=== PATIENT | female | born 1950 | race Caucasian/White ===

== ENCOUNTER 2017-04-27 09:39 | Outpatient (CLI) | payer MEDICARE, BC ==
[2017-04-27 10:01] LABS: BASOPHILS # (AUTO) 0.1 10^3/uL (0.0-0.1); BASOPHILS % (AUTO) 1.4 %; EOSINOPHILS # (AUTO) 0.3 10^3/uL (0.0-0.7); EOSINOPHILS % (AUTO) 4.5 %; HCT - HEMATOCRIT 36.1 % (37.0-47.0); HGB - HEMOGLOBIN 12.1 g/dL (12.0-16.0); LYMPHOCYTES # (AUTO) 2.1 10^3/uL (1.5-3.5); LYMPHOCYTES % (AUTO) 30.2 %; MEAN CORPUSCULAR HEMOGLOBIN 28.8 pg (27.0-31.0); MEAN CORPUSCULAR HGB CONC 33.4 g/dL (32.0-36.0); MEAN CORPUSCULAR VOLUME 86.2 fL (81.0-99.0); MEAN PLATELET VOLUME 9.2 fL (7.9-10.8); MONOCYTES # (AUTO) 0.7 10^3/uL (0.0-1.0); MONOCYTES % (AUTO) 9.7 %; NEUTROPHILS # (AUTO) 3.8 10^3/uL (1.5-6.6); NEUTROPHILS % (AUTO) 54.2 %; RED BLOOD COUNT 4.19 10^6/uL (4.20-5.40); RED CELL DISTRIBUTION WIDTH 17.4 % (12.0-15.0)
[2017-04-27 10:39] LABS: ALBUMIN/GLOBULIN RATIO 1.4 (1.0-2.2); BILIRUBIN,TOTAL 0.7 mg/dL (0.2-1.0); BUN - BLOOD UREA NITROGEN 22 mg/dL (6-20); CALCIUM 9.7 mg/dL (8.5-10.3); CARBON DIOXIDE - CO2 29 mmol/L (21-32); CHLORIDE 102 mmol/L (101-111); CHOL/HDL RATIO 4.7 (<4.4); CHOLESTEROL 244 mg/dL; CREATININE 0.7 mg/dL (0.4-1.0); GFR - MDRD 83 (>89); GLUCOSE 99 mg/dL (70-100); HDL CHOLESTEROL 52 mg/dL; LDL/HDL RATIO 3.2 (<4.4); POTASSIUM 4.3 mmol/L (3.5-5.0); SODIUM 138 mmol/L (135-145); TOTAL PROTEIN 7.4 g/dL (6.7-8.2); TRIGLYCERIDES 141 mg/dL; VLDL CHOLESTEROL 28 mg/dL
[2017-04-27 14:59] LABS: IRON 50 ug/dL (28-170); TOTAL IRON BINDING CAPACITY 473 ug/dL (250-450); TRANSFERRIN 338 mg/dL (192-382)
== END 2017-04-27 09:40 | disposition home or self-care (01) ==
LOC: LAB 09:39
PROVIDERS: ATTEND Family Medicine
DX: E78.5 Hyperlipidemia, unspecified (principal); D64.9 Anemia, unspecified
CPT/HCPCS: 36415; 80053; 80061; 82306; 82728; 83540; 84443; 84466; 85025

== ENCOUNTER 2018-05-04 08:15 | Outpatient (CLI) | payer MEDICARE, BC ==
[2018-05-04 08:44] LABS: BASOPHILS # (AUTO) 0.1 10^3/uL (0.0-0.1); BASOPHILS % (AUTO) 1.1 %; EOSINOPHILS # (AUTO) 0.4 10^3/uL (0.0-0.7); EOSINOPHILS % (AUTO) 5.7 %; HGB - HEMOGLOBIN 12.4 g/dL (12.0-16.0); LYMPHOCYTES % (AUTO) 27.5 %; MEAN CORPUSCULAR HEMOGLOBIN 29.8 pg (27.0-31.0); MEAN CORPUSCULAR VOLUME 90.4 fL (81.0-99.0); MONOCYTES # (AUTO) 0.7 10^3/uL (0.0-1.0); MONOCYTES % (AUTO) 9.3 %; NEUTROPHILS # (AUTO) 4.2 10^3/uL (1.5-6.6); NEUTROPHILS % (AUTO) 56.4 %; PLT - PLATELET COUNT 300 10^3/uL (130-450); RED BLOOD COUNT 4.14 10^6/uL (4.20-5.40); RED CELL DISTRIBUTION WIDTH 17.7 % (12.0-15.0); WHITE BLOOD COUNT 7.4 x10^3/uL (4.8-10.8)
[2018-05-04 09:05] LABS: % IRON SATURATION 9 % (20-50); ALBUMIN 4.3 g/dL (3.2-5.5); ALBUMIN/GLOBULIN RATIO 1.4 (1.0-2.2); ALKALINE PHOSPHATASE 84 IU/L (42-121); ALT ALANINE AMINOTRANSFERASE 21 IU/L (10-60); AST ASPARTATE AMINOTRANSFERASE 25 IU/L (10-42); BILIRUBIN,TOTAL 0.9 mg/dL (0.2-1.0); BUN - BLOOD UREA NITROGEN 18 mg/dL (6-20); CALCIUM 9.5 mg/dL (8.5-10.3); CARBON DIOXIDE - CO2 30 mmol/L (21-32); CHLORIDE 103 mmol/L (101-111); CHOL/HDL RATIO 4.6 (<4.4); CHOLESTEROL 252 mg/dL; CREATININE 0.6 mg/dL (0.4-1.0); GFR - MDRD 99 (>89); GLUCOSE 96 mg/dL (70-100); HDL CHOLESTEROL 55 mg/dL; IRON 41 ug/dL (28-170); LDL CHOLESTEROL,CALCULATED 169 mg/dL; LDL/HDL RATIO 3.1 (<4.4); SODIUM 140 mmol/L (135-145); TOTAL IRON BINDING CAPACITY 465 ug/dL (250-450); TOTAL PROTEIN 7.4 g/dL (6.7-8.2); TRANSFERRIN 332 mg/dL (192-382); VLDL CHOLESTEROL 28 mg/dL
[2018-05-04 09:15] LABS: THYROID STIMULATING HORMONE 1.47 uIU/mL (0.34-5.60)
[2018-05-04 09:20] LABS: FERRITIN 5.5 ng/mL (11.0-306.8)
== END 2018-05-04 08:16 | disposition home or self-care (01) ==
LOC: LAB 08:15
PROVIDERS: ATTEND Family Medicine
DX: J44.9 Chronic obstructive pulmonary disease, unspecified (principal); E04.1 Nontoxic single thyroid nodule; E78.5 Hyperlipidemia, unspecified; D64.9 Anemia, unspecified; Z79.899 Other long term (current) drug therapy
CPT/HCPCS: 36415; 80053; 80061; 82306; 82728; 83540; 83721; 84443; 84466; 85025

== ENCOUNTER 2019-01-10 10:23 | Outpatient (CLI) | payer MEDICARE, BC ==
[2019-01-10 10:41] LABS: BASOPHILS # (AUTO) 0.1 10^3/uL (0.0-0.1); BASOPHILS % (AUTO) 1.2 %; EOSINOPHILS # (AUTO) 0.2 10^3/uL (0.0-0.7); EOSINOPHILS % (AUTO) 3.3 %; HGB - HEMOGLOBIN 12.6 g/dL (12.0-16.0); LYMPHOCYTES # (AUTO) 2.1 10^3/uL (1.5-3.5); LYMPHOCYTES % (AUTO) 29.8 %; MEAN CORPUSCULAR VOLUME 87.9 fL (81.0-99.0); MEAN PLATELET VOLUME 8.5 fL (7.9-10.8); MONOCYTES # (AUTO) 0.6 10^3/uL (0.0-1.0); MONOCYTES % (AUTO) 8.4 %; NEUTROPHILS % (AUTO) 57.3 %; PLT - PLATELET COUNT 363 10^3/uL (130-450); RED BLOOD COUNT 4.35 10^6/uL (4.20-5.40); RED CELL DISTRIBUTION WIDTH 17.7 % (12.0-15.0)
[2019-01-10 11:40] LABS: % IRON SATURATION 27 % (20-50); ALBUMIN 4.3 g/dL (3.2-5.5); ALBUMIN/GLOBULIN RATIO 1.3 (1.0-2.2); ALKALINE PHOSPHATASE 76 IU/L (42-121); ALT ALANINE AMINOTRANSFERASE 24 IU/L (10-60); AST ASPARTATE AMINOTRANSFERASE 22 IU/L (10-42); BILIRUBIN,TOTAL 0.9 mg/dL (0.2-1.0); BUN - BLOOD UREA NITROGEN 20 mg/dL (6-20); CALCIUM 9.7 mg/dL (8.5-10.3); CARBON DIOXIDE - CO2 30 mmol/L (21-32); CHLORIDE 98 mmol/L (101-111); CHOL/HDL RATIO 4.6 (<4.4); CHOLESTEROL 258 mg/dL; CREATININE 0.5 mg/dL (0.4-1.0); GFR - MDRD 122 (>89); GLUCOSE 94 mg/dL (70-100); HDL CHOLESTEROL 56 mg/dL; IRON 143 ug/dL (28-170); LDL CHOLESTEROL,CALCULATED 161 mg/dL; LDL/HDL RATIO 2.9 (<4.4); SODIUM 138 mmol/L (135-145); TOTAL IRON BINDING CAPACITY 531 ug/dL (250-450); TOTAL PROTEIN 7.5 g/dL (6.7-8.2); TRANSFERRIN 379 mg/dL (192-382); VLDL CHOLESTEROL 41 mg/dL
[2019-01-10 12:04] LABS: FERRITIN 6.7 ng/mL (11.0-306.8)
== END 2019-01-10 10:24 | disposition home or self-care (01) ==
LOC: LAB 10:23
PROVIDERS: ATTEND Family Medicine
DX: E78.5 Hyperlipidemia, unspecified (principal); Z79.899 Other long term (current) drug therapy; D64.9 Anemia, unspecified; J44.9 Chronic obstructive pulmonary disease, unspecified; E55.9 Vitamin D deficiency, unspecified; E04.1 Nontoxic single thyroid nodule
CPT/HCPCS: 36415; 80053; 80061; 82306; 82728; 83540; 83721; 84443; 84466; 85025

== ENCOUNTER 2019-02-12 08:50 | Outpatient (CLI) | payer MEDICARE, BC ==
--- NOTE | 2019-02-12 14:54 | XRAY Report ---
Reason: COPD Procedure Date: 02/12/2019 Accession Number: [id number] / [id number] Procedure: WCP - Chest 2 View X-Ray CPT Code: 39605 FULL RESULT: EXAM: CHEST RADIOGRAPHY EXAM DATE: 02/12/2019 09:12 AM. CLINICAL HISTORY: Shortness of breath, COPD. COMPARISON: None. TECHNIQUE: 2 views. FINDINGS: Lungs/Pleura: No focal opacities evident. No pleural effusion. No pneumothorax. Normal volumes. Mediastinum: Heart and mediastinal contours are unremarkable. Other: A biphasic mild thoracolumbar scoliosis present. An old healed posterior lateral left seventh rib fracture present. IMPRESSION: No acute cardiopulmonary disease evident. RADIA
== END 2019-02-12 08:51 | disposition home or self-care (01) ==
LOC: DI.WCP 08:50
PROVIDERS: ATTEND Family Medicine
DX: J44.9 Chronic obstructive pulmonary disease, unspecified (principal)
CPT/HCPCS: 71046

== ENCOUNTER 2019-08-25 03:15 | Outpatient (CLI) | payer MEDICARE, BC | END 2019-08-25 03:16 | disposition critical access hospital (66) | LOC: EMS 03:15 | PROVIDERS: ATTEND Surgery | DX: R06.02 Shortness of breath (principal) | CPT/HCPCS: A0425; A0429 ==

== ENCOUNTER 2019-08-25 03:22 | Emergency (ER) | payer MEDICARE, BC ==
--- NOTE | 2019-08-25 04:55 | ED Physician Documentation ---
PD HPI DYSPNEA - Stated complaint Stated Complaint: SOA - Chief complaint Chief Complaint: Resp - History obtained from History obtained from: Patient - History of Present Illness Timing - onset: Enter time (01:00) Timing - onset during: Sleep Timing - details: Abrupt onset Pain level max: 0 Pain level now: 0 Improved by: Rest Worsened by: Exertion Associated symptoms: Diaphoresis. No: Fever, Chest pain / discomfort, Palpitations, Bilateral edema, Unilateral edema Similar symptoms before: Has not had sx before Recently seen: Not recently seen - Additional information Additional information: woke from sleep 1 AM and felt dyspneic, nauseas, clammy, sweaty. BIBA, symptoms improved en route without specific intervention. she recently had 2 week holter monitor, awaiting results. Review of Systems Constitutional: reports: Sweats. denies: Fever, Chills, Fatigue Cardiac: denies: Chest pain / pressure, Palpitations, Pedal edema Respiratory: reports: Dyspnea. denies: Cough GI: reports: Nausea. denies: Abdominal Pain, Vomiting : denies: Dysuria, Frequency Musculoskeletal: reports: Reviewed and negative PD PAST MEDICAL HISTORY - Past Medical History Past Medical History: Yes Cardiovascular: Arrhythmia Respiratory: COPD Neuro: None Endocrine/Autoimmune: None GI: None PATROL GUARD: None : None HEENT: None Psych: None Musculoskeletal: Osteoarthritis, Chronic back pain, Other Derm: None - Past Surgical History General: Cholecystectomy HEENT: Tonsil/Adenoidectomy - Present Medications Home Medications: Ambulatory Orders Medication Instructions Recorded Confirmed Diazepam 5 mg PO DAILY PRN 10/21/13 01/05/15 Ipratropium/Albuterol Inhaler 2 puffs INH 3-4XD PRN 10/21/13 01/05/15 [Combivent Inhaler] Fluticasone/Salmeterol [Advair 1 puffs IH DAILY 03/17/14 01/05/15 250-50 Diskus] diltiaZEM CD [Cardizem Cd] 120 mg PO DAILY #20 capsule 08/25/19 - Allergies Allergies/Adverse Reactions: Allergies Allergy/AdvReac Type Severity Reaction Status Date / Time iodine Allergy Unknown unk Verified 12/17/13 17:31 Sulfa (Sulfonamide Allergy Unknown unk Verified 12/17/13 17:31 Antibiotics) codeine Allergy Unknown Verified 08/26/19 08:49 doxycycline Allergy Unknown Verified 08/26/19 08:49 ibuprofen Allergy Unknown Verified 08/26/19 08:49 Penicillins Allergy unk Verified 12/17/13 17:31 mycins Allergy Unknown Uncoded 08/26/19 08:49 - Social History Does the pt smoke?: Yes Smoking Status: Current every day smoker Does the pt drink ETOH?: No Does the pt have substance abuse?: No - Immunizations Immunizations are current?: Yes Immunizations: TDAP current <10years - POLST Patient has POLST: No PD ED PE NORMAL - Vitals Vital signs reviewed: Yes - General General: Alert and 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, No acute distress, Well developed/nourished - HEENT HEENT: Moist mucous membranes - Neck Neck: Supple, no meningeal sign - Respiratory Respiratory: No respiratory distress, Clear bilaterally - Abdomen Abdomen: Soft, Non tender - Derm Derm: Normal color, Warm and dry - Extremities Extremities: No edema - Neuro Neuro: Alert and 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 PD ED PE EXPANDED - Cardiac Cardiac: Tachy, Irregularly irregular Results - Vitals Vitals: Oxygen O2 Source Room air - EKG (time done) No standard instances Rate: Rate (enter#) (113) Rhythm: Atrial fibrillation [place]: Normal Intervals: RBBB QRS: Normal Ischemia: Normal ST segments - Labs Labs: Laboratory Tests 08/25/19 08/25/19 08/25/19 04:50 04:50 04:50 WBC 9.2 RBC 4.63 Hgb 12.4 Hct 39.9 MCV 86.2 MCH 26.8 L MCHC 31.1 L RDW 17.8 H Plt Count 367 MPV 11.8 H Neut # (Auto) 6.1 Lymph # (Auto) 1.8 [place] # (Auto) 0.9 Eos # (Auto) 0.4 Baso # (Auto) 0.1 Absolute Nucleated RBC 0.00 Nucleated RBC % 0.0 Sodium 142 Potassium 4.1 Chloride 103 Carbon Dioxide 29 Anion Gap 10.0 BUN 23 H Creatinine 0.6 Estimated GFR (MDRD) 99 Glucose 119 H Calcium 9.7 Magnesium Total Bilirubin 0.4 AST 21 ALT 19 Alkaline Phosphatase 77 Troponin I High Sens 12.7 B-Natriuretic Peptide Total Protein 7.5 Albumin 4.1 Globulin 3.4 Albumin/Globulin Ratio 1.2 Lipase 36 08/25/19 08/25/19 04:50 04:50 WBC RBC Hgb Hct MCV MCH MCHC RDW Plt Count MPV Neut # (Auto) Lymph # (Auto) [place] # (Auto) Eos # (Auto) Baso # (Auto) Absolute Nucleated RBC Nucleated RBC % Sodium Potassium Chloride Carbon Dioxide Anion Gap BUN Creatinine Estimated GFR (MDRD) Glucose Calcium Magnesium 2.2 Total Bilirubin AST ALT Alkaline Phosphatase Troponin I High Sens B-Natriuretic Peptide 60 Total Protein Albumin Globulin Albumin/Globulin Ratio Lipase - Rads (name of study) chest xray Radiology: Prelim report reviewed, See rad report PD MEDICAL DECISION MAKING - ED course Complexity details: reviewed results, re-evaluated patient, considered differential, d/w patient ED course: DENNIS converted to NSR after IV cardizem, and this effected symptom resolution (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 Departure - Departure Disposition: 01 Home, Self Care Clinical Impression: Atrial fibrillation Qualifiers: Atrial fibrillation type: paroxysmal Qualified Code(s): I48.0 - Paroxysmal atrial fibrillation Condition: Good Instructions: ED Afib Follow-Up: Ras Urbano MD [Primary Care Provider] - Prescriptions: diltiaZEM CD [Cardizem Cd] 120 mg PO DAILY #20 capsule Discharge Date/Time: 08/25/19 07:51
--- NOTE | 2019-08-25 05:22 | XRAY Report ---
Reason: SOA Procedure Date: 08/25/2019 Accession Number: [id number] / [id number] Procedure: XR - Chest 1 View X-Ray CPT Code: 87894 Final Report FULL RESULT: EXAM: CHEST RADIOGRAPHY EXAM DATE: 08/25/2019 04:56 AM. CLINICAL HISTORY: SOA. COMPARISON: CHEST 2 VIEW 02/12/2019 8:46 AM. TECHNIQUE: 1 view. FINDINGS: Lungs/Pleura: Possible mild left base atelectasis. No focal opacities evident. No pulmonary edema. No pleural effusion. No pneumothorax. Mediastinum: Within exam limitations, the cardiomediastinal contour is normal. Other: Osseous degenerative changes and mild scoliosis of the thoracic spine. Stable healed left posterior seventh rib fracture. IMPRESSION: Possible mild atelectasis at left lung base. Otherwise no evidence of acute cardiopulmonary process. RADIA
[2019-08-25] MEDS ORDERED: diltiaZEM INJ 5 MG/ML VIAL IVP STA (05:31)
[2019-08-25 05:47] LABS: BASOPHILS # (AUTO) 0.1 10^3/uL (0.0-0.1); BASOPHILS % (AUTO) 1.1 %; EOSINOPHILS # (AUTO) 0.4 10^3/uL (0.0-0.7); EOSINOPHILS % (AUTO) 3.9 %; HGB - HEMOGLOBIN 12.4 g/dL (12.0-16.0); LYMPHOCYTES # (AUTO) 1.8 10^3/uL (1.5-3.5); MEAN CORPUSCULAR HEMOGLOBIN 26.8 pg (27.0-31.0); MEAN CORPUSCULAR HGB CONC 31.1 g/dL (32.0-36.0); MEAN CORPUSCULAR VOLUME 86.2 fL (81.0-99.0); MEAN PLATELET VOLUME 11.8 fL (7.9-10.8); MONOCYTES # (AUTO) 0.9 10^3/uL (0.0-1.0); MONOCYTES % (AUTO) 9.9 %; NEUTROPHILS # (AUTO) 6.1 10^3/uL (1.5-6.6); NEUTROPHILS % (AUTO) 65.6 %; PLT - PLATELET COUNT 367 10^3/uL (130-450); RED BLOOD COUNT 4.63 10^6/uL (4.20-5.40); RED CELL DISTRIBUTION WIDTH 17.8 % (12.0-15.0); WHITE BLOOD COUNT 9.2 x10^3/uL (4.8-10.8)
[2019-08-25 05:56] LABS: ALBUMIN 4.1 g/dL (3.2-5.5); ALBUMIN/GLOBULIN RATIO 1.2 (1.0-2.2); BILIRUBIN,TOTAL 0.4 mg/dL (0.2-1.0); CALCIUM 9.7 mg/dL (8.5-10.3); CREATININE 0.6 mg/dL (0.4-1.0); TOTAL PROTEIN 7.5 g/dL (6.7-8.2)
[2019-08-25] MEDS ORDERED: diltiaZEM CD 120 MG CAPSULE PO STA (07:34)
[2019-08-25 07:42] VITALS: BP 153/76
== END 2019-08-25 07:51 | disposition home or self-care (01) ==
LOC: EDUNIT# → ED 03:22
DX: I48.0 Paroxysmal atrial fibrillation (principal); F17.200 Nicotine dependence, unspecified, uncomplicated
CPT/HCPCS: 36415; 71045; 80053; 83690; 83735; 83880; 84484; 85025; 93005; 96374; 99284; A9270

== ENCOUNTER 2019-11-24 11:52 | Emergency (ER) | payer MEDICARE, BC ==
[2019-11-24 12:16] LABS: BASOPHILS # (AUTO) 0.1 10^3/uL (0.0-0.1); BASOPHILS % (AUTO) 0.9 %; EOSINOPHILS # (AUTO) 0.2 10^3/uL (0.0-0.7); EOSINOPHILS % (AUTO) 1.9 %; HGB - HEMOGLOBIN 8.4 g/dL (12.0-16.0); LYMPHOCYTES # (AUTO) 1.4 10^3/uL (1.5-3.5); LYMPHOCYTES % (AUTO) 15.2 %; MEAN CORPUSCULAR HEMOGLOBIN 23.7 pg (27.0-31.0); MEAN CORPUSCULAR HGB CONC 29.7 g/dL (32.0-36.0); MEAN CORPUSCULAR VOLUME 79.7 fL (81.0-99.0); MEAN PLATELET VOLUME 10.5 fL (7.9-10.8); MONOCYTES # (AUTO) 0.9 10^3/uL (0.0-1.0); MONOCYTES % (AUTO) 9.9 %; NEUTROPHILS # (AUTO) 6.4 10^3/uL (1.5-6.6); NEUTROPHILS % (AUTO) 71.8 %; PLT - PLATELET COUNT 445 10^3/uL (130-450); RED BLOOD COUNT 3.55 10^6/uL (4.20-5.40); WHITE BLOOD COUNT 8.9 x10^3/uL (4.8-10.8)
[2019-11-24 12:27] LABS: INR 1.2 (0.8-1.2); PT - PROTHROMBIN TIME 13.8 secs (9.9-12.6)
[2019-11-24 12:34] LABS: ALBUMIN 4.1 g/dL (3.2-5.5); ALBUMIN/GLOBULIN RATIO 1.2 (1.0-2.2); BILIRUBIN,TOTAL 0.6 mg/dL (0.2-1.0); CALCIUM 9.4 mg/dL (8.5-10.3); CREATININE 0.6 mg/dL (0.4-1.0); MAGNESIUM 1.9 mg/dL (1.7-2.8); TOTAL PROTEIN 7.4 g/dL (6.7-8.2)
[2019-11-24] MEDS ORDERED: IPRATROPIUM/ALBUTEROL 3 ML NEB INH STA (12:36)
[2019-11-24] MEDS ORDERED: methylPREDNISolone SUCCINATE 125 MG/2 ML VIAL IVP STA (12:36)
[2019-11-24] MEDS ORDERED: diltiaZEM INJ 5 MG/ML VIAL IVP STA (12:36)
--- NOTE | 2019-11-24 12:46 | ED Physician Documentation ---
PD HPI DYSPNEA - Stated complaint Stated Complaint: DIZZY - Chief complaint Chief Complaint: Resp - History obtained from History obtained from: Patient - History of Present Illness Timing - onset: Other (69-year-old woman with history of atrial fibrillation, COPD and ongoing tobacco use presents with shortness of breath that started this morning. She has minimal cough, nonproductive. She has sternal pain but says she has had that for months and in the interim has had a recent stress test that was negative. 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 She is on no cardiac meds now except for aspirin. She denies pedal edema. No new chest pain. She has a history of anemia but denies dark or tarry stools. She has been constipated recently.) Review of Systems Ten Systems: 10 systems reviewed and negative Constitutional: reports: Fatigue. denies: Fever, Chills Nose: denies: Rhinorrhea / runny nose, Congestion Cardiac: reports: Chest pain / pressure, Palpitations. denies: Pedal edema, Calf pain Respiratory: reports: Dyspnea, Cough, Wheezing. denies: Hemoptysis GI: reports: Constipation. 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 : None HEENT: None Psych: None Musculoskeletal: Osteoarthritis, Chronic back pain, Other Derm: None - Past Surgical History General: Cholecystectomy HEENT: Tonsil/Adenoidectomy - Present Medications Home Medications: Ambulatory Orders Medication Instructions Recorded Confirmed Diazepam 5 mg PO DAILY PRN 10/21/13 01/05/15 Ipratropium/Albuterol Inhaler 2 puffs INH 3-4XD PRN 10/21/13 01/05/15 [Combivent Inhaler] Fluticasone/Salmeterol [Advair 1 puffs IH DAILY 03/17/14 01/05/15 250-50 Diskus] diltiaZEM CD [Cardizem Cd] 120 mg PO DAILY #20 capsule 08/25/19 Azithromycin [Zithromax] 1 tab PO DAILY #6 tablet 11/24/19 Metoclopramide [Reglan] 10 mg PO Q6H PRN #20 tablet 11/24/19 predniSONE [Deltasone] 20 mg PO [id number] #21 tab 11/24/19 - Allergies Allergies/Adverse Reactions: Allergies Allergy/AdvReac Type Severity Reaction Status Date / Time iodine Allergy Unknown unk Verified 12/17/13 17:31 Sulfa (Sulfonamide Allergy Unknown unk Verified 12/17/13 17:31 Antibiotics) codeine Allergy Unknown Verified 08/26/19 08:49 doxycycline Allergy Unknown Verified 08/26/19 08:49 ibuprofen Allergy Unknown Verified 08/26/19 08:49 Penicillins Allergy unk Verified 12/17/13 17:31 mycins Allergy Unknown Uncoded 08/26/19 08:49 - Social History Does the pt smoke?: Yes Smoking Status: Current every day smoker Does the pt drink ETOH?: No Does the pt have substance abuse?: No - Family History Family history: reports: Non contributory - Immunizations Immunizations are current?: Yes Immunizations: TDAP current <10years - POLST Patient has POLST: No PD ED PE NORMAL - Vitals Vital signs reviewed: Yes - General General: Other (Slightly breathless but speaking in full sentences.) - HEENT HEENT: PERRL, EOMI - Neck Neck: Supple, no meningeal sign, No bony TTP - Cardiac Cardiac: Other (Rapid and irregular without murmur) - Respiratory Respiratory: Other (Modest tachypnea, slightly diminished and rhonchorous and wheezy throughout without other focal findings.) - Abdomen Abdomen: Normal bowel sounds, Soft, Non tender - Back Back: No CVA TTP, No spinal TTP - Derm Derm: Normal color, Warm and dry - Extremities Extremities: Other (Trace pitting pedal edema, nontender, symmetric) - Neuro Neuro: Alert and 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, Normal speech - Psych Psych: Normal mood, Normal affect Results - Vitals Vitals: Vital Signs - 24 hr 11/24/19 11/24/19 11/24/19 11:56 12:03 12:30 Temperature 37.2 C Heart Rate 128 H 144 H 116 H Respiratory 28 H 25 H Rate Blood Pressure 128/83 H 121/68 O2 Saturation 99 11/24/19 11/24/19 11/24/19 12:58 13:01 13:06 Temperature Heart Rate 116 H 106 H 99 Respiratory 18 24 22 Rate Blood Pressure 86/56 L 140/98 H O2 Saturation 99 95 Oxygen O2 Source Room air - EKG (time done) 1201 Rate: Rate (enter#) (127) Rhythm: Atrial flutter, Atrial fibrillation [place]: Normal QRS: Normal Ischemia: Non specific changes ( minimal lateral std) Computer interpretation: Disagree with computer - Labs Labs: Laboratory Tests 11/24/19 11/24/19 11/24/19 12:10 12:10 12:10 WBC 8.9 RBC 3.55 L Hgb 8.4 L Hct 28.3 L MCV 79.7 L MCH 23.7 L MCHC 29.7 L RDW 17.0 H Plt Count 445 MPV 10.5 Neut # (Auto) 6.4 Lymph # (Auto) 1.4 L [place] # (Auto) 0.9 Eos # (Auto) 0.2 Baso # (Auto) 0.1 Absolute Nucleated RBC 0.00 Nucleated RBC % 0.0 PT 13.8 H INR 1.2 Sodium 136 Potassium 4.0 Chloride 98 L Carbon Dioxide 26 Anion Gap 12.0 BUN 16 Creatinine 0.6 Estimated GFR (MDRD) 99 Glucose 138 H Calcium 9.4 Magnesium 1.9 Total Bilirubin 0.6 AST 30 ALT 25 Alkaline Phosphatase 87 Troponin I High Sens B-Natriuretic Peptide Total Protein 7.4 Albumin 4.1 Globulin 3.3 Albumin/Globulin Ratio 1.2 Lipase 34 TSH Blood Type Recheck 11/24/19 11/24/19 11/24/19 12:10 12:10 12:40 WBC RBC Hgb Hct MCV MCH MCHC RDW Plt Count MPV Neut # (Auto) Lymph # (Auto) [place] # (Auto) Eos # (Auto) Baso # (Auto) Absolute Nucleated RBC Nucleated RBC % PT INR Sodium Potassium Chloride Carbon Dioxide Anion Gap BUN Creatinine Estimated GFR (MDRD) Glucose Calcium Magnesium Total Bilirubin AST ALT Alkaline Phosphatase Troponin I High Sens 13.5 B-Natriuretic Peptide Total Protein Albumin Globulin Albumin/Globulin Ratio Lipase TSH 1.09 Blood Type Recheck A POSITIVE 11/24/19 12:40 WBC RBC Hgb Hct MCV MCH MCHC RDW Plt Count MPV Neut # (Auto) Lymph # (Auto) [place] # (Auto) Eos # (Auto) Baso # (Auto) Absolute Nucleated RBC Nucleated RBC % PT INR Sodium Potassium Chloride Carbon Dioxide Anion Gap BUN Creatinine Estimated GFR (MDRD) Glucose Calcium Magnesium Total Bilirubin AST ALT Alkaline Phosphatase Troponin I High Sens B-Natriuretic Peptide 83 Total Protein Albumin Globulin Albumin/Globulin Ratio Lipase TSH Blood Type Recheck PD MEDICAL DECISION MAKING - ED course ED course: This is a 69-year-old woman with history of atrial fibrillation and COPD who presents with shortness of breath, history and physical most consistent with kind of a combination of COPD exacerbation and atrial fibrillation without obvious evidence of fluid overload/heart failure. She is also found to be anemic, last labs were done in August and her hemoglobin then was 12, today it is 8.4 she denies any dark or tarry stools or blood in the stool. It also sounds like she had a complete work-up for anemia in the past which was negative per her. She was administered DuoNeb, Solu-Medrol, and diltiazem IV. After the administration of a small dose of diltiazem her heart rate was controlled and she felt much better. Also feeling better after the DuoNeb and Solu-Medrol. We will put her on some antibiotics and prednisone for COPD flare and she will restart her diltiazem, she does not need a prescription for it as she has it at home. She is also having a lot of stomach upset and difficulty eating with early satiety, we will start her on some Reglan and a GI referral was recommended. Departure - Departure Disposition: 01 Home, Self Care Clinical Impression: Moderate COPD (chronic obstructive pulmonary disease) Atrial fibrillation Qualifiers: Atrial fibrillation type: longstanding persistent Qualified Code(s): I48.11 - Longstanding persistent atrial fibrillation Condition: Good Record reviewed to determine appropriate education?: Yes Instructions: Atrial Fibrillation Dc, ED COPD Flare Prescriptions: Azithromycin [Zithromax] 1 tab PO DAILY #6 tablet Metoclopramide [Reglan] 10 mg PO Q6H PRN #20 tablet PRN Reason: nausea or headache predniSONE [Deltasone] 20 mg PO [id number] #21 tab Comments: It seems that your shortness of breath and symptoms today are probably a combination of rapid atrial fibrillation and COPD. For the COPD we are giving you some prednisone and an antibiotic. For the atrial fibrillation I recommend going back on the diltiazem which you already have the prescription for. You are also anemic. It is unclear how long that is been going on. I recommend talking with Dr. Urbano and having repeat labs done later this week to recheck your hemoglobin which today was 8.4. Also given the stomach issues you are having with eating I would recommend talking with Dr. Urbano about a referral to a hardware supplies sales representative. I am prescribing some Reglan/metoclopramide which barbara milligan help with that and with the nausea.
--- NOTE | 2019-11-24 12:52 | XRAY Report ---
Reason: dyspnea Procedure Date: 11/24/2019 Accession Number: [id number] / [id number] Procedure: XR - Chest 1 View X-Ray CPT Code: 16659 Final Report FULL RESULT: EXAM: CHEST RADIOGRAPHY EXAM DATE: 11/24/2019 12:19 PM. CLINICAL HISTORY: Dyspnea. COMPARISON: 08/25/2019. TECHNIQUE: 1 view. FINDINGS: Lungs/Pleura: No focal opacities evident. No pleural effusion. No pneumothorax. Mediastinum: The heart size is at the upper limit of normal. Arterial calcifications indicate atherosclerosis. Other: Old healed left-sided rib fractures are present. There is a mild leftward thoracic scoliosis. DISH is in the thoracic spine. IMPRESSION: No acute findings. RADIA
[2019-11-24 13:56] VITALS: BP 95/62
== END 2019-11-24 14:22 | disposition home or self-care (01) ==
LOC: EDUNIT# → ED 11:52
DX: J44.9 Chronic obstructive pulmonary disease, unspecified (principal); I48.11 Longstanding persistent atrial fibrillation; I48.92 Unspecified atrial flutter; D64.9 Anemia, unspecified; F17.200 Nicotine dependence, unspecified, uncomplicated; Z79.82 Long term (current) use of aspirin
CPT/HCPCS: 36415; 71045; 80053; 83690; 83735; 83880; 84443; 84484; 85025; 85610; 86850; 86900; 86901; 93005; 94640; 94664; 96374; 96375; 99284

== ENCOUNTER 2019-11-24 13:14 | Outpatient (CLI) | payer MEDICARE, BC | END 2019-11-24 13:15 | disposition critical access hospital (66) | LOC: EMS 13:14 | PROVIDERS: ATTEND Surgery | DX: R06.02 Shortness of breath (principal); R42 Dizziness and giddiness | CPT/HCPCS: A0425; A0429 ==

== ENCOUNTER 2019-11-26 07:01 | Outpatient (CLI) | payer MEDICARE, BC | END 2019-11-26 07:02 | disposition critical access hospital (66) | LOC: EMS 07:01 | PROVIDERS: ATTEND Surgery | DX: R06.02 Shortness of breath (principal); R53.1 Weakness; R42 Dizziness and giddiness | CPT/HCPCS: A0425; A0429 ==

== ENCOUNTER 2019-11-26 07:48 | Emergency (ER) | payer MEDICARE, BC ==
--- NOTE | 2019-11-26 08:13 | ED Physician Documentation ---
PD HPI DYSPNEA - Stated complaint Stated Complaint: SOA - History obtained from History obtained from: Patient - History of Present Illness Timing - onset: How many years ago Timing - onset during: Rest, Light activity, Exertion Timing - details: Gradual onset Worsened by: Exertion Associated symptoms: Cough, Palpitations, Bilateral edema. No: Fever, Chest pain / discomfort Recently seen: Emergency Dept - Additional information Additional information: This is a 69-year-old woman who was seen in the emergency department 3 days ago with shortness of breath. She is back today because she would like to get to the bottom of what is going on. She is been experiencing symptoms for off and on for over a year but they seem to be getting progressively worse and this morning she woke up around 3 AM and was just feeling light headed having a little bit of "punching" sensation in the gut she did her albuterol around 3 AM and did not really seem to help much she was really restless she could not lay down she could not sit up and then she had another episode where she felt like she was getting punched in the gut that lasted at least 20 to 30 seconds while she was on the phone with her daughter daughter told her to hang up and call 911. Patient gets lightheaded she has a dry mouth. She has been evaluated by the global supply chain vice president had is going in and out of A. fib and has "runs of V. tach". She had a negative stress test and was told her heart pumping function was good. She was placed on Xarelto but she had to discontinue that because of GI bleeding. Now she is only taking aspirin as a blood thinner. This morning she had 1 pulse rate that was up around 134. She did not feel nauseous or have any vomiting. She has never been evaluated by a rock loader and has ruled in December. She used to be taking Flovent but she took herself off of it about 3 weeks ago trying to get to the bottom of all of the symptoms. Of note when she was discharged from the hospital 3 days ago from the emergency department that night she had a really difficult time sleeping her mind was racing she was still short of breath she does not know what they gave her a steroid injection however she was given a prescription for prednisone which she did not take because she was worried it would upset her stomach. She is been experiencing a lot of bloating sensation decreased appetite her intestines churning and gurgling. She ate a half a green salad with no dressing on it at 5 PM last night and said that she has been craving more vegetables lately than she ever has in her entire. She denies diarrhea but has had some constipation. Denies any dysuria but says she is "peeing like a race horse" and she has a lot of urgency. She has minimal edema to her lower extremities bilaterally. No history of DVT. She has had chronic anemia but no history of transfusion although she is received iron infusions in the past. Review of Systems Constitutional: denies: Fever Eyes: denies: Decreased vision Nose: denies: Rhinorrhea / runny nose, Congestion Throat: denies: Sore throat Cardiac: reports: Palpitations, Pedal edema Respiratory: reports: Dyspnea, Cough GI: reports: Constipation. denies: Nausea, Vomiting, Diarrhea : reports: Other (Urgency). denies: Dysuria Skin: denies: Rash Neurologic: reports: Other (Lightheaded). denies: Difficulty speaking, Syncope Endocrine: reports: Other (She is not diabetic) PD PAST MEDICAL HISTORY - Past Medical History Cardiovascular: Arrhythmia Respiratory: COPD Neuro: None Endocrine/Autoimmune: None GI: None ACCESS COORDINATOR: None : None HEENT: None Psych: None Musculoskeletal: Osteoarthritis, Chronic back pain, Other Derm: None - Past Surgical History General: Cholecystectomy HEENT: Tonsil/Adenoidectomy - Present Medications Home Medications: Ambulatory Orders Medication Instructions Recorded Confirmed Diazepam 5 mg PO DAILY PRN 10/21/13 01/05/15 Ipratropium/Albuterol Inhaler 2 puffs INH 3-4XD PRN 10/21/13 01/05/15 [Combivent Inhaler] Fluticasone/Salmeterol [Advair 1 puffs IH DAILY 03/17/14 01/05/15 250-50 Diskus] diltiaZEM CD [Cardizem Cd] 120 mg PO DAILY #20 capsule 08/25/19 Azithromycin [Zithromax] 1 tab PO DAILY #6 tablet 11/24/19 Metoclopramide [Reglan] 10 mg PO Q6H PRN #20 tablet 11/24/19 predniSONE [Deltasone] 20 mg PO [id number] #21 tab 11/24/19 - Allergies Allergies/Adverse Reactions: Allergies Allergy/AdvReac Type Severity Reaction Status Date / Time iodine Allergy Unknown unk Verified 11/26/19 08:01 Sulfa (Sulfonamide Allergy Unknown unk Verified 11/26/19 08:01 Antibiotics) codeine Allergy Unknown Verified 11/26/19 08:01 doxycycline Allergy Unknown Verified 11/26/19 08:01 ibuprofen Allergy Unknown Verified 11/26/19 08:01 Penicillins Allergy unk Verified 11/26/19 08:01 mycins Allergy Unknown Uncoded 11/26/19 08:01 - Social History Does the pt smoke?: Yes Smoking Status: Current every day smoker Does the pt drink ETOH?: No Does the pt have substance abuse?: No - Immunizations Immunizations are current?: Yes Immunizations: TDAP current <10years - POLST Patient has POLST: No PD ED PE NORMAL - Vitals Vital signs reviewed: Yes - General General: Alert and 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, No acute distress, Well developed/nourished - HEENT HEENT: Atraumatic, PERRL, EOMI, Other (Very dry mucous membranes) - Neck Neck: No adenopathy - Cardiac Cardiac: RRR, No murmur, Strong equal pulses - Respiratory Respiratory: No respiratory distress, Other (Patient looks dyspneic when she stops and takes a deep breath but she is able to speak in full sentences. She has diminished breath sounds with faint wheezing heard at end inspiration and expiration.) - Abdomen Abdomen: Normal bowel sounds, Soft, No organomegaly - Derm Derm: Normal color, Warm and dry, No rash - Extremities Extremities: No deformity, No tenderness to palpate, Other (Trace pretibial edema bilaterally.) - Neuro Neuro: Alert and 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, commercial credit head 2-12 intact, No motor deficit, No sensory deficit, Normal speech - Psych Psych: Normal mood, Normal affect Results - Vitals Vitals: Vital Signs - 24 hr 11/26/19 11/26/19 11/26/19 07:49 08:42 09:00 Temperature 36.9 C Heart Rate 95 90 98 Respiratory 21 15 19 Rate Blood Pressure 133/111 H 125/71 O2 Saturation 97 98 11/26/19 11/26/19 11/26/19 09:36 10:42 12:00 Temperature Heart Rate 86 91 96 Respiratory 20 18 23 Rate Blood Pressure 100/55 L 126/83 H O2 Saturation 99 96 02/09/0411/26/19 11/26/19 12:18 12:29 12:42 Temperature 37.2 C 37.2 C 37.0 C Heart Rate 96 115 H 93 Respiratory 18 24 25 H Rate Blood Pressure 126/83 H 126/83 H 133/81 H O2 Saturation 94 11/26/19 11/26/19 11/26/19 12:58 13:51 14:35 Temperature 37.1 C 37.1 C 37.1 C Heart Rate 86 88 90 Respiratory 24 19 18 Rate Blood Pressure 116/82 H 141/81 H 115/64 O2 Saturation 98 Oxygen O2 Source Room air Oxygen Flow Rate 2 - EKG (time done) 0757 Rate: Rate (enter#) (94) Rhythm: NSR Intervals: No: Wide QRS Ischemia: Normal ST segments Other comments: Other comments (There is artifact which limits the interpretation a little bit but I do not see acute ST elevation or depression.) Compare to prior EKG: Old EKG unavailable - Labs Labs: Laboratory Tests 11/26/19 11/26/19 11/26/19 08:30 09:00 09:00 WBC 7.1 RBC 3.42 L Hgb 7.9 L Hct 27.4 L MCV 80.1 L MCH 23.1 L MCHC 28.8 L RDW 17.2 H Plt Count 452 H MPV 10.2 Neut # (Auto) 5.3 Lymph # (Auto) 1.1 L O'Brien # (Auto) 0.6 Eos # (Auto) 0.1 Baso # (Auto) 0.1 Absolute Nucleated RBC 0.00 Nucleated RBC % 0.0 Manual Slide Review Indicated Platelet Estimate INCREASED (>450,000) Platelet Morphology NORMAL APPEARANCE RBC Morph Micro Appear 1+ TARGET CELLS Sodium 139 Potassium 4.0 Chloride 100 L Carbon Dioxide 27 Anion Gap 12.0 BUN 16 Creatinine 0.6 Estimated GFR (MDRD) 99 Glucose 109 H Calcium 9.7 Total Bilirubin 0.5 AST 29 ALT 27 Alkaline Phosphatase 82 Troponin I High Sens Total Protein 7.6 Albumin 4.3 Globulin 3.3 Albumin/Globulin Ratio 1.3 Lipase 32 Urine Color YELLOW Urine Clarity HAZY Urine pH 7.0 Ur Specific [place] 1.015 Urine Protein NEGATIVE Urine Glucose (UA) NEGATIVE Urine Ketones NEGATIVE Urine Occult Blood NEGATIVE Urine Nitrite NEGATIVE Urine Bilirubin NEGATIVE Urine Urobilinogen 0.2 (NORMAL) Ur Leukocyte Esterase SMALL H Urine RBC None Seen Urine WBC 6-10 H Ur Squamous Epith Cells MOD Squamous H Urine Bacteria Few Ur Microscopic Review INDICATED Urine Culture Comments NOT INDICATED Blood Type Antibody Screen Crossmatch IS Only 11/26/19 11/26/19 09:00 11:09 WBC RBC Hgb Hct MCV MCH MCHC RDW Plt Count MPV Neut # (Auto) Lymph # (Auto) O'Brien # (Auto) Eos # (Auto) Baso # (Auto) Absolute Nucleated RBC Nucleated RBC % Manual Slide Review Platelet Estimate Platelet Morphology RBC Morph Micro Appear Sodium Potassium Chloride Carbon Dioxide Anion Gap BUN Creatinine Estimated GFR (MDRD) Glucose Calcium Total Bilirubin AST ALT Alkaline Phosphatase Troponin I High Sens 10.1 Total Protein Albumin Globulin Albumin/Globulin Ratio Lipase Urine Color Urine Clarity Urine pH Ur Specific [place] Urine Protein Urine Glucose (UA) Urine Ketones Urine Occult Blood Urine Nitrite Urine Bilirubin Urine Urobilinogen Ur Leukocyte Esterase Urine RBC Urine WBC Ur Squamous Epith Cells Urine Bacteria Ur Microscopic Review Urine Culture Comments Blood Type A POSITIVE Antibody Screen NEGATIVE Crossmatch IS Only See Detail - Rads (name of study) CXR Radiology: EMP read contemporaneously (neg acute), See rad report PD MEDICAL DECISION MAKING - ED course Complexity details: reviewed results, re-evaluated patient, d/w patient, d/w family ED course: Patient received a DuoNeb and on reevaluation still had some wheezing so she received an albuterol. Still even a little bit wheezy following that. She remained hemodynamically stable. We had lengthy discussion about treatment plan from here and the fact that she has a hemoglobin that is just below 8 with the dyspnea after discussion we elected to give 1 unit of blood. She has needed iron infusions in the past and this is a microcytic anemia so she is going to follow back up with her primary care provider about restarting the iron infusions since she has such extreme stomach discomfort she can even take her normal medications without getting nauseous. I do not think she will tolerate oral iron at this time. She could be placed on prednisone 60 mg daily for 3 days while she restarts her Flovent inhaler as prescribed previously. We talked about doing a food journal to try and figure out if there is a specific foods that are causing her GI distress and bloating. She is get a make every attempt to avoid all processed foods right now. She will start probiotics. I encour aged follow-up with a grooming assistant and consideration for follow-up with an integrative practitioner since she really wants to be a off of his many medications as possible and pursue a more natural way of controlling her medical problems. Departure - Departure Disposition: 01 Home, Self Care Clinical Impression: Microcytic anemia, Moderate COPD (chronic obstructive pulmonary disease) Condition: Good Instructions: COPD Dc, ED Anemia Iron Deficiency Follow-Up: Ras Urbano MD [Primary Care Provider] - Comments: Take the prednisone that was prescribed just 3 tablets daily for 3 days. They c an be taken all at 1 time. You are going to restart your Flovent inhaler today. Start taking probiotics. One recommendation would be a product by [employer]. Avoid all processed foods if possible. Start a food journal listing the time of day, any food or drinks that you consume and any symptoms that you develop. I would recommend evaluation and consultation with a grooming assistant to see if they can figure out what is causing your bloating. The [facility] website has a list of practitioners who specialize in Integrative Medicine. You should be able to search their website for a practitioner in this area. My computer is not loading it properly for me to make any suggestions. Follow-up with Dr. Urbano about restarting iron infusions and to have your hemoglobin rechecked. Discharge Date/Time: 11/26/19 14:55
[2019-11-26] MEDS ORDERED: IPRATROPIUM/ALBUTEROL 3 ML NEB INH STA (08:16)
--- NOTE | 2019-11-26 08:39 | XRAY Report ---
Reason: chest pain Procedure Date: 11/26/2019 Accession Number: [id number] / [id number] Procedure: XR - Chest 1 View X-Ray CPT Code: 60097 Final Report FULL RESULT: EXAM: CHEST RADIOGRAPHY 1 VIEW EXAM DATE: 11/26/2019. CLINICAL HISTORY: Chest pain. COMPARISON: AP upright portable chest done 11/24/2019 at 1202. TECHNIQUE: AP upright portable chest at 0813 view. FINDINGS: Lungs/Pleura: Normal vasculature. The lungs are clear. No pleural fluid or pneumothorax. Mediastinum: Normal cardiac and mediastinal contours. Bones: Degenerative changes of the spine. Levoconvex thoracic scoliosis. Healed fracture of the lateral left seventh rib. IMPRESSION: No acute abnormality. No change from 11/24/2019 RADIA
[2019-11-26 09:08] LABS: BASOPHILS # (AUTO) 0.1 10^3/uL (0.0-0.1); BASOPHILS % (AUTO) 0.7 %; EOSINOPHILS # (AUTO) 0.1 10^3/uL (0.0-0.7); EOSINOPHILS % (AUTO) 1.7 %; HGB - HEMOGLOBIN 7.9 g/dL (12.0-16.0); LYMPHOCYTES # (AUTO) 1.1 10^3/uL (1.5-3.5); MEAN CORPUSCULAR HEMOGLOBIN 23.1 pg (27.0-31.0); MEAN CORPUSCULAR HGB CONC 28.8 g/dL (32.0-36.0); MEAN CORPUSCULAR VOLUME 80.1 fL (81.0-99.0); MEAN PLATELET VOLUME 10.2 fL (7.9-10.8); MONOCYTES # (AUTO) 0.6 10^3/uL (0.0-1.0); MONOCYTES % (AUTO) 8.4 %; NEUTROPHILS # (AUTO) 5.3 10^3/uL (1.5-6.6); NEUTROPHILS % (AUTO) 73.8 %; PLT - PLATELET COUNT 452 10^3/uL (130-450); RED BLOOD COUNT 3.42 10^6/uL (4.20-5.40); RED CELL DISTRIBUTION WIDTH 17.2 % (12.0-15.0); WHITE BLOOD COUNT 7.1 x10^3/uL (4.8-10.8)
[2019-11-26 09:09] LABS: BILIRUBIN,URINE NEGATIVE (NEGATIVE); GLUCOSE, URINE (UA) NEGATIVE (NEGATIVE); KETONES,URINE (UA) NEGATIVE (NEGATIVE); LEUKOCYTE ESTERASE, URINE SMALL (NEGATIVE); NITRITE,URINE NEGATIVE (NEGATIVE); OCCULT BLOOD,URINE NEGATIVE (NEGATIVE); PROTEIN,URINE NEGATIVE (NEGATIVE); UROBILINOGEN,URINE 0.2 (NORMAL) E.U./dL (NORMAL)
[2019-11-26 09:18] LABS: BACTERIA,URINE Few /HPF (None Seen); CLARITY,URINE HAZY (CLEAR); RBC,URINE None Seen /HPF (0-5); SQUAMOUS EPITHELIAL CELL,UR MOD Squamous (<= Few)
[2019-11-26 09:21] LABS: ALBUMIN 4.3 g/dL (3.2-5.5); ALBUMIN/GLOBULIN RATIO 1.3 (1.0-2.2); BILIRUBIN,TOTAL 0.5 mg/dL (0.2-1.0); CALCIUM 9.7 mg/dL (8.5-10.3); CREATININE 0.6 mg/dL (0.4-1.0); TOTAL PROTEIN 7.6 g/dL (6.7-8.2)
[2019-11-26] MEDS ORDERED: ALBUTEROL NEB 2.5 MG/3 ML INH STA (09:24)
[2019-11-26 09:25] LABS: PLATELET ESTIMATE, MANUAL INCREASED (>450,000) (NORMAL); PLATELET MORPHOLOGY NORMAL APPEARANCE (NORMAL)
[2019-11-26 14:38] VITALS: BP 115/64
== END 2019-11-26 14:55 | disposition home or self-care (01) ==
LOC: EDUNIT# → ED 07:48
DX: D50.9 Iron deficiency anemia, unspecified (principal); J44.9 Chronic obstructive pulmonary disease, unspecified; F17.200 Nicotine dependence, unspecified, uncomplicated
CPT/HCPCS: 36415; 36430; 71045; 80053; 81001; 83690; 84484; 85025; 86850; 86900; 86901; 86920; 93005; 94640; 99284; 99285; P9016; 81003; 87086

== ENCOUNTER 2019-12-04 10:08 | Emergency (ER) | payer MEDICARE, BC ==
--- NOTE | 2019-12-04 10:48 | ED Physician Documentation ---
PD HPI SYNCOPE - Stated complaint Stated Complaint: SYNCOPE - Chief complaint Chief Complaint: General - History obtained from History obtained from: Patient - History of Present Illness Witnessed: Unwitnessed Timing - onset: Today Duration: Minutes Preceding symptoms: Vision changes, Light headed Associated symptoms: Vision changes. No: Seizure, Incontinant of urine, Incontinant of stool, Headache, Chest pain, Palpitations, Diaphoresis, Dyspnea, Nausea / vomiting, Abdominal pain Contributing factors: Recent med change, Decreased PO intake Injury occurred: None Similar symptoms before: Diagnosis (near syncope and syncope) Recently seen: Clinic, Emergency Dept, Admitted - Additional information Additional information: 69-year-old female was at home this morning when she is describing sitting at her desk when she began to feel blackening of her vision. She felt that if she took a deeper breath this would help she did some deep breathing and symptoms eventually passed. She became concerned with the near syncopal episode and has come to the hospital.She has a history of some atrial fibrillation with rapid ventricular response and she did not note a palpitation at the time this incident occurred. 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 FIELD: None : None HEENT: None Psych: None Musculoskeletal: Osteoarthritis, Chronic back pain, Other Derm: None - Past Surgical History General: Cholecystectomy HEENT: Tonsil/Adenoidectomy - Present Medications Home Medications: Ambulatory Orders Medication Instructions Recorded Confirmed Ipratropium/Albuterol Inhaler 2 puffs INH 3-4XD PRN 10/21/13 12/04/19 [Combivent Inhaler] Fluticasone/Salmeterol [Advair 1 puffs IH DAILY 03/17/14 12/04/19 250-50 Diskus] Omeprazole 20 mg PO DAILY 12/04/19 12/04/19 Sucralfate 1 tab PO DAILY 12/04/19 12/04/19 clonazePAM [Clonazepam] 1 tab PO PRN PRN 12/04/19 12/04/19 diltiaZEM CD [Cardizem Cd] 120 mg PO BID 12/04/19 12/04/19 diltiaZEM [Cardizem] 1 tab PO QID PRN 12/04/19 12/04/19 - Allergies Allergies/Adverse Reactions: Allergies Allergy/AdvReac Type Severity Reaction Status Date / Time iodine Allergy Unknown unk Verified 12/04/19 10:18 Sulfa (Sulfonamide Allergy Unknown unk Verified 12/04/19 10:18 Antibiotics) codeine Allergy Unknown Verified 12/04/19 10:18 doxycycline Allergy Unknown Verified 12/04/19 10:18 ibuprofen Allergy Unknown Verified 12/04/19 10:18 Penicillins Allergy unk Verified 12/04/19 10:18 mycins Allergy Unknown Uncoded 12/04/19 10:18 - Social History Does the pt smoke?: Yes Smoking Status: Current every day smoker Does the pt drink ETOH?: No Does the pt have substance abuse?: No - Immunizations Immunizations are current?: Yes Immunizations: TDAP current <10years - POLST Patient has POLST: No PD ED PE NORMAL - Vitals Vital signs reviewed: Yes (Hypertensive systolic mild) - General General: Alert and 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, No acute distress, Well developed/nourished - HEENT HEENT: Atraumatic, PERRL, EOMI, Other (Smells heavily of tobacco.) - Neck Neck: Supple, no meningeal sign, No bony TTP - Cardiac Cardiac: RRR, No murmur - Respiratory Respiratory: No respiratory distress, Clear bilaterally - Abdomen Abdomen: Soft, Non tender - Back Back: No CVA TTP, No spinal TTP - Derm Derm: Normal color, Warm and dry, No rash - Extremities Extremities: No deformity, No edema, No calf tenderness / cord - Neuro Neuro: Alert and 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, dockmaster 2-12 intact, No motor deficit, No sensory deficit, Normal speech Eye Opening: Spontaneous Motor: Obeys Commands Verbal: Oriented GCS Score: 15 - Psych Psych: Normal mood, Normal affect Results - Vitals Vitals: Vital Signs - 24 hr 12/04/19 12/04/19 12/04/19 10:14 10:41 12:29 Temperature 37 C 37.3 C Heart Rate 97 96 89 Respiratory 17 22 21 Rate Blood Pressure 149/64 H 146/68 H 132/85 H O2 Saturation 98 94 100 12/04/19 12/04/19 12:34 14:07 Temperature Heart Rate 86 86 Respiratory 14 14 Rate Blood Pressure 132/85 H O2 Saturation 100 Oxygen O2 Source Room air - EKG (time done) 1036 Rate: Rate (enter#) (87) Rhythm: NSR Ischemia: Normal ST segments Compare to prior EKG: Unchanged from prior EKG (SPT 11-26-2019 no changes) Computer interpretation: Agree with computer - Labs Labs: Laboratory Tests 12/04/19 12/04/19 12/04/19 10:31 10:35 10:48 WBC 10.6 RBC 4.18 L Hgb 9.9 L Hct 33.1 L MCV 79.2 L MCH 23.7 L MCHC 29.9 L RDW 18.4 H Plt Count 387 MPV 10.3 Neut # (Auto) 7.4 H Lymph # (Auto) 1.7 Cottle # (Auto) 1.2 H Eos # (Auto) 0.2 Baso # (Auto) 0.1 Absolute Nucleated RBC 0.00 Nucleated RBC % 0.0 Sodium Potassium Chloride Carbon Dioxide Anion Gap BUN Creatinine Estimated GFR (MDRD) Glucose POC Whole Bld Glucose 105 H Calcium Total Bilirubin AST ALT Alkaline Phosphatase Troponin I High Sens Total Protein Albumin Globulin Albumin/Globulin Ratio Lipase Urine Color YELLOW Urine Clarity CLEAR Urine pH 6.0 Ur Specific [place] 1.010 Urine Protein NEGATIVE Urine Glucose (UA) NEGATIVE Urine Ketones 15 H Urine Occult Blood NEGATIVE Urine Nitrite NEGATIVE Urine Bilirubin NEGATIVE Urine Urobilinogen 0.2 (NORMAL) Ur Leukocyte Esterase NEGATIVE Ur Microscopic Review NOT INDICATED Urine Culture Comments NOT INDICATED Blood Type Antibody Screen 12/04/19 12/04/19 12/04/19 10:48 10:48 11:02 WBC RBC Hgb Hct MCV MCH MCHC RDW Plt Count MPV Neut # (Auto) Lymph # (Auto) Cottle # (Auto) Eos # (Auto) Baso # (Auto) Absolute Nucleated RBC Nucleated RBC % Sodium 136 Potassium 3.8 Chloride 97 L Carbon Dioxide 27 Anion Gap 12.0 BUN 11 Creatinine 0.6 Estimated GFR (MDRD) 99 Glucose 99 POC Whole Bld Glucose Calcium 9.7 Total Bilirubin 0.8 AST 22 ALT 29 Alkaline Phosphatase 77 Troponin I High Sens 11.2 Total Protein 7.6 Albumin 4.2 Globulin 3.4 Albumin/Globulin Ratio 1.2 Lipase 32 Urine Color Urine Clarity Urine pH Ur Specific [place] Urine Protein Urine Glucose (UA) Urine Ketones Urine Occult Blood Urine Nitrite Urine Bilirubin Urine Urobilinogen Ur Leukocyte Esterase Ur Microscopic Review Urine Culture Comments Blood Type A POSITIVE Antibody Screen NEGATIVE Procedures - IVC sono (time) 1150 Bedside IVC sono: IVC measures (cm) (1.18), IVC collapsed c insp (cm) (complete), Dehydration (est >1 liter deficit) PD MEDICAL DECISION MAKING - ED course Complexity details: reviewed old records, reviewed results, re-evaluated patient, considered differential, d/w patient, d/w family ED course: 69-year-old female with a history of intermittent atrial fibrillation has a sinus rhythm on arrival to the emergency department she has had a near syncopal episode and she is found to be dehydrated on interrogation the inferior vena cava. She is administered intravenous saline. We did look at the patient's rhythm the entire time she was here and she was in a sinus rhythm with a normal rate and there were no incidences of ectopy. Patient felt improved and was discharged home. She has had some medication changes and she brings her papers in with her from multiple doctor visits and she is seeing a mine manager about her arrhythmia. She is on asprin for anticoagulation as she did develop black stool and required a transfusion. She smells heavily of tobacco and assures me she is down to 2 cigarets per day. This seems like it might not be true. Departure - Departure Disposition: 01 Home, Self Care Clinical Impression: Moderate COPD (chronic obstructive pulmonary disease), Dehydration, Near syncope Condition: Stable Instructions: ED COPD Flare, ED Dehydration, ED Near Syncope Vasovagal Follow-Up: Ras Urbano MD [Primary Care Provider] - Discharge Date/Time: 12/04/19 14:09
[2019-12-04 11:04] LABS: BASOPHILS # (AUTO) 0.1 10^3/uL (0.0-0.1); BASOPHILS % (AUTO) 0.5 %; EOSINOPHILS # (AUTO) 0.2 10^3/uL (0.0-0.7); HGB - HEMOGLOBIN 9.9 g/dL (12.0-16.0); LYMPHOCYTES # (AUTO) 1.7 10^3/uL (1.5-3.5); LYMPHOCYTES % (AUTO) 16.2 %; MEAN CORPUSCULAR HEMOGLOBIN 23.7 pg (27.0-31.0); MEAN CORPUSCULAR HGB CONC 29.9 g/dL (32.0-36.0); MEAN CORPUSCULAR VOLUME 79.2 fL (81.0-99.0); MEAN PLATELET VOLUME 10.3 fL (7.9-10.8); MONOCYTES # (AUTO) 1.2 10^3/uL (0.0-1.0); MONOCYTES % (AUTO) 10.9 %; NEUTROPHILS # (AUTO) 7.4 10^3/uL (1.5-6.6); NEUTROPHILS % (AUTO) 69.7 %; PLT - PLATELET COUNT 387 10^3/uL (130-450); RED BLOOD COUNT 4.18 10^6/uL (4.20-5.40); RED CELL DISTRIBUTION WIDTH 18.4 % (12.0-15.0); WHITE BLOOD COUNT 10.6 x10^3/uL (4.8-10.8)
[2019-12-04 11:23] LABS: ALBUMIN 4.2 g/dL (3.2-5.5); ALBUMIN/GLOBULIN RATIO 1.2 (1.0-2.2); BILIRUBIN,TOTAL 0.8 mg/dL (0.2-1.0); CALCIUM 9.7 mg/dL (8.5-10.3); CREATININE 0.6 mg/dL (0.4-1.0); TOTAL PROTEIN 7.6 g/dL (6.7-8.2)
[2019-12-04 11:57] LABS: BILIRUBIN,URINE NEGATIVE (NEGATIVE); GLUCOSE, URINE (UA) NEGATIVE (NEGATIVE); KETONES,URINE (UA) 15 mg/dL (NEGATIVE); LEUKOCYTE ESTERASE, URINE NEGATIVE (NEGATIVE); NITRITE,URINE NEGATIVE (NEGATIVE); OCCULT BLOOD,URINE NEGATIVE (NEGATIVE); PROTEIN,URINE NEGATIVE (NEGATIVE); UROBILINOGEN,URINE 0.2 (NORMAL) E.U./dL (NORMAL)
[2019-12-04 11:58] LABS: CLARITY,URINE CLEAR (CLEAR)
[2019-12-04] MEDS ORDERED: SODIUM CHLORIDE 0.9% 1,000 ML IV ONE (12:14)
[2019-12-04] MEDS ORDERED: IPRATROPIUM/ALBUTEROL 3 ML NEB INH STA (12:14)
[2019-12-04 12:30] VITALS: BP 132/85
== END 2019-12-04 14:09 | disposition home or self-care (01) ==
LOC: ED 10:08
DX: E86.0 Dehydration (principal); R55 Syncope and collapse; J44.9 Chronic obstructive pulmonary disease, unspecified; F17.200 Nicotine dependence, unspecified, uncomplicated
CPT/HCPCS: 36415; 80053; 81001; 81003; 83690; 84484; 85025; 86850; 86900; 86901; 87086; 93005; 94640; 96360; 96361; 99284

== ENCOUNTER 2020-01-29 08:48 | Outpatient (CLI) | payer MEDICARE, BC ==
[2020-01-29 09:12] LABS: BASOPHILS # (AUTO) 0.1 10^3/uL (0.0-0.1); EOSINOPHILS # (AUTO) 0.2 10^3/uL (0.0-0.7); EOSINOPHILS % (AUTO) 2.8 %; HGB - HEMOGLOBIN 14.3 g/dL (12.0-16.0); LYMPHOCYTES # (AUTO) 1.8 10^3/uL (1.5-3.5); MEAN CORPUSCULAR HEMOGLOBIN 28.7 pg (27.0-31.0); MEAN CORPUSCULAR HGB CONC 32.4 g/dL (32.0-36.0); MEAN CORPUSCULAR VOLUME 88.8 fL (81.0-99.0); MEAN PLATELET VOLUME 10.6 fL (7.9-10.8); MONOCYTES # (AUTO) 0.7 10^3/uL (0.0-1.0); MONOCYTES % (AUTO) 10.9 %; PLT - PLATELET COUNT 289 10^3/uL (130-450); RED BLOOD COUNT 4.98 10^6/uL (4.20-5.40); RED CELL DISTRIBUTION WIDTH 24.2 % (12.0-15.0); WHITE BLOOD COUNT 6.8 x10^3/uL (4.8-10.8)
[2020-01-29 09:17] LABS: RBC MORPHOLOGY (MULTIPLE) 4+ ANISOCYTOSIS (NORMAL)
[2020-01-29 09:44] LABS: % IRON SATURATION 25 % (20-50); IRON 86 ug/dL (28-170); TOTAL IRON BINDING CAPACITY 350 ug/dL (250-450); TRANSFERRIN 250 mg/dL (192-382)
== END 2020-01-29 08:49 | disposition home or self-care (01) ==
LOC: LAB 08:48
PROVIDERS: ATTEND Internal Medicine Gastroenterology
DX: K59.00 Constipation, unspecified (principal); D50.9 Iron deficiency anemia, unspecified
CPT/HCPCS: 36415; 82728; 83540; 84466; 85025

== ENCOUNTER 2020-02-11 08:11 | Outpatient (CLI) | payer MEDICARE, BC | END 2020-02-11 08:12 | disposition critical access hospital (66) | LOC: EMS 08:11 | PROVIDERS: ATTEND Surgery | DX: R00.9 Unspecified abnormalities of heart beat (principal); R07.9 Chest pain, unspecified | CPT/HCPCS: A0425; A0429 ==

== ENCOUNTER 2020-02-11 08:17 | Emergency (ER) | payer MEDICARE, BC ==
--- NOTE | 2020-02-11 08:29 | ED Physician Documentation ---
PD HPI CHEST PAIN - Stated complaint Stated Complaint: RAPID HR - History obtained from History obtained from: Patient, EMS - History of Present Illness Timing - onset: How many hours ago (few), Today Timing - onset during: Rest Timing - details: Abrupt onset, Still present Quality: Pressure, Tightness Location: Substernal Improved by: No: Rest Associated symptoms: Palpitations (feeling hearet rate is fast and skipping.) Similar symptoms before: Diagnosis (episodic atrial fib in the past. Feeling similar to that.) Review of Systems Constitutional: denies: Fever, Chills Nose: denies: Rhinorrhea / runny nose, Congestion Throat: denies: Sore throat Cardiac: reports: Palpitations. denies: Chest pain / pressure, Pedal edema, Calf pain Respiratory: reports: Dyspnea, Cough (chronic, nonproductive.), Wheezing (chronic, some increase the past few days.) GI: denies: Abdominal Pain, Nausea, Vomiting, Diarrhea Neurologic: reports: Generalized weakness. 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 : None HEENT: None Psych: None Musculoskeletal: Osteoarthritis, Chronic back pain, Other Derm: None - Past Surgical History Past Surgical History: Yes General: Cholecystectomy HEENT: Tonsil/Adenoidectomy - Present Medications Home Medications: Ambulatory Orders Medication Instructions Recorded Confirmed Ipratropium/Albuterol Inhaler 2 puffs INH 3-4XD PRN 10/21/13 02/03/20 [Combivent Inhaler] Fluticasone/Salmeterol [Advair 1 puffs IH DAILY 03/17/14 02/03/20 250-50 Diskus] Omeprazole 20 mg PO DAILY 12/04/19 02/03/20 Sucralfate 1 tab PO DAILY 12/04/19 02/03/20 clonazePAM [Clonazepam] 1 tab PO PRN PRN 12/04/19 02/03/20 diltiaZEM CD [Cardizem Cd] 120 mg PO BID 12/04/19 02/03/20 diltiaZEM [Cardizem] 1 tab PO QID PRN 12/04/19 02/03/20 dexAMETHasone [Decadron] 4 mg PO DAILY #5 tablet 02/11/20 - Allergies Allergies/Adverse Reactions: Allergies Allergy/AdvReac Type Severity Reaction Status Date / Time iodine Allergy Unknown unk Verified 02/11/20 08:43 Sulfa (Sulfonamide Allergy Unknown unk Verified 02/11/20 08:43 Antibiotics) codeine Allergy Unknown Verified 02/11/20 08:43 doxycycline Allergy Unknown Verified 02/11/20 08:43 ibuprofen Allergy Unknown Verified 02/11/20 08:43 Penicillins Allergy unk Verified 02/11/20 08:43 mycins Allergy Unknown Uncoded 02/11/20 08:43 - Living Situation Living Arrangement: reports: At home - Social History Does the pt smoke?: Yes Smoking Status: Current every day smoker Does the pt drink ETOH?: No Does the pt have substance abuse?: No - Immunizations Immunizations are current?: Yes Immunizations: TDAP current <10years - POLST Patient has POLST: No PD ED PE NORMAL - Vitals Vital signs reviewed: Yes - General General: Alert and 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, No acute distress, Well developed/nourished - HEENT HEENT: Pharynx benign - Neck Neck: Supple, no meningeal sign, No adenopathy - Cardiac Cardiac: No murmur. No: RRR (irregular and rapid at 120s-130s. ) - Respiratory Respiratory: Clear bilaterally - Abdomen Abdomen: Soft, Non tender - Back Back: No CVA TTP - Derm Derm: Normal color, Warm and dry - Extremities Extremities: No tenderness to palpate, Normal ROM s pain, No edema, No calf tenderness / cord - Neuro Neuro: Alert and 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, No motor deficit, Normal speech Eye Opening: Spontaneous Motor: Obeys Commands Verbal: Oriented GCS Score: 15 - Psych Psych: Normal mood Results - Vitals Vitals: Oxygen O2 Source Room air - EKG (time done) 08:21 Rate: Rate (enter#) (112) Rhythm: Atrial fibrillation [place]: Normal QRS: Poor R wave progression Ischemia: Normal ST segments. No: ST elevation c/w ischemia, ST depression - Labs Labs: Laboratory Tests 02/11/20 02/11/20 02/11/20 08:45 08:45 08:45 WBC 5.9 RBC 5.13 Hgb 14.9 Hct 45.5 MCV 88.7 MCH 29.0 MCHC 32.7 RDW 22.9 H Plt Count 281 MPV 10.3 Neut # (Auto) 3.6 Lymph # (Auto) 1.4 L Emanuel # (Auto) 0.6 Eos # (Auto) 0.3 Baso # (Auto) 0.1 Absolute Nucleated RBC 0.00 Nucleated RBC % 0.0 Sodium 139 Potassium 4.3 Chloride 101 Carbon Dioxide 28 Anion Gap 10.0 BUN 14 Creatinine 0.6 Estimated GFR (MDRD) 99 Glucose 111 H Calcium 9.9 Magnesium Total Bilirubin 0.6 AST 27 ALT 29 Alkaline Phosphatase 98 Troponin I High Sens 9.5 B-Natriuretic Peptide Total Protein 7.9 Albumin 4.6 Globulin 3.3 Albumin/Globulin Ratio 1.4 Lipase 42 02/11/20 02/11/20 08:45 08:45 WBC RBC Hgb Hct MCV MCH MCHC RDW Plt Count MPV Neut # (Auto) Lymph # (Auto) Emanuel # (Auto) Eos # (Auto) Baso # (Auto) Absolute Nucleated RBC Nucleated RBC % Sodium Potassium Chloride Carbon Dioxide Anion Gap BUN Creatinine Estimated GFR (MDRD) Glucose Calcium Magnesium 1.9 Total Bilirubin AST ALT Alkaline Phosphatase Troponin I High Sens B-Natriuretic Peptide 67 Total Protein Albumin Globulin Albumin/Globulin Ratio Lipase - Rads (name of study) chest xray Radiology: Prelim report reviewed (no acute process), See rad report PD MEDICAL DECISION MAKING - ED course Complexity details: re-evaluated patient (heart rate improved. feeling better. She feels stable for discharge. ), considered differential, d/w patient Departure - Departure Disposition: 01 Home, Self Care Clinical Impression: Atrial fibrillation with rapid ventricular response, Moderate COPD (chronic obstructive pulmonary disease) Condition: Stable Record reviewed to determine appropriate education?: Yes Instructions: ED Afib Follow-Up: Ras Urbano MD [Primary Care Provider] - Prescriptions: dexAMETHasone [Decadron] 4 mg PO DAILY #5 tablet Comments: Continue usual diltiazem daily at 2 PM, including today. Stay well-hydrated. Add dexamethasone steroid daily for 5 days. This is to try to help with your breathing with consideration of some slight increased trouble breathing may be enhancing the atrial fib response. Your blood count is good without anemia at this time. Your electrolytes are good as well. Recheck if your heart rate is consistently elevated moderately over the next few days. Return if significantly elevated (more than 130 or so). You can take the added short acting diltiazem periodically as directed by your customer engineer for the next day or 2 as well. Discharge Date/Time: 02/11/20 12:01
[2020-02-11 08:51] LABS: BASOPHILS # (AUTO) 0.1 10^3/uL (0.0-0.1); BASOPHILS % (AUTO) 1.3 %; EOSINOPHILS # (AUTO) 0.3 10^3/uL (0.0-0.7); EOSINOPHILS % (AUTO) 4.4 %; HGB - HEMOGLOBIN 14.9 g/dL (12.0-16.0); LYMPHOCYTES # (AUTO) 1.4 10^3/uL (1.5-3.5); LYMPHOCYTES % (AUTO) 23.8 %; MEAN CORPUSCULAR HGB CONC 32.7 g/dL (32.0-36.0); MEAN CORPUSCULAR VOLUME 88.7 fL (81.0-99.0); MEAN PLATELET VOLUME 10.3 fL (7.9-10.8); MONOCYTES # (AUTO) 0.6 10^3/uL (0.0-1.0); MONOCYTES % (AUTO) 9.9 %; NEUTROPHILS # (AUTO) 3.6 10^3/uL (1.5-6.6); NEUTROPHILS % (AUTO) 60.4 %; PLT - PLATELET COUNT 281 10^3/uL (130-450); RED BLOOD COUNT 5.13 10^6/uL (4.20-5.40); RED CELL DISTRIBUTION WIDTH 22.9 % (12.0-15.0); WHITE BLOOD COUNT 5.9 x10^3/uL (4.8-10.8)
[2020-02-11 09:05] LABS: ALBUMIN 4.6 g/dL (3.2-5.5); ALBUMIN/GLOBULIN RATIO 1.4 (1.0-2.2); BILIRUBIN,TOTAL 0.6 mg/dL (0.2-1.0); CALCIUM 9.9 mg/dL (8.5-10.3); CREATININE 0.6 mg/dL (0.4-1.0); TOTAL PROTEIN 7.9 g/dL (6.7-8.2)
--- NOTE | 2020-02-11 09:25 | XRAY Report ---
Reason: Chest pain Procedure Date: 02/11/2020 Accession Number: [id number] / [id number] Procedure: XR - Chest 1 View X-Ray CPT Code: 66017 Final Report FULL RESULT: EXAM: CHEST RADIOGRAPHY EXAM DATE: 02/11/2020 08:52 AM. CLINICAL HISTORY: Chest pain. COMPARISON: CHEST 1 VIEW 11/26/2019 8:13 AM. TECHNIQUE: 1 view. FINDINGS: Lungs/Pleura: Lungs are without infiltrate. Negative for pleural fluid. Mediastinum: Within exam limitations, the cardiomediastinal contour is normal. Other: Levoscoliosis thoracic spine 17 degrees centered at T9. IMPRESSION: Negative for active cardiopulmonary process and stable chest as compared to 11/26/2019. RADIA
[2020-02-11] MEDS: IPRATROPIUM/ALBUTEROL 3 ML NEB INH STA (09:31)
[2020-02-11] MEDS: DEXAMETHASONE 10 MG/ML VIAL IVP STA (09:31)
[2020-02-11] MEDS: DILTIAZEM 50 MG/10 ML VIAL IVP ONE ×2 (09:48→11:29)
[2020-02-11] MEDS: SODIUM CHLORIDE 0.9% 500 ML IV ONE (09:48)
[2020-02-11 12:02] VITALS: BP 99/86
== END 2020-02-11 12:01 | disposition home or self-care (01) ==
LOC: EDUNIT# → ED 08:17
DX: I48.91 Unspecified atrial fibrillation (principal); J44.9 Chronic obstructive pulmonary disease, unspecified; F17.200 Nicotine dependence, unspecified, uncomplicated
CPT/HCPCS: 36415; 71045; 80053; 83690; 83735; 83880; 84484; 85025; 93005; 94640; 96361; 96374; 96375; 96376; 99284

== ENCOUNTER 2020-04-08 09:13 | Emergency (ER) | payer MEDICARE, BC ==
[2020-04-08] MEDS ORDERED: IPRATROPIUM/ALBUTEROL 3 ML NEB INH STA (09:34)
--- NOTE | 2020-04-08 09:36 | ED Physician Documentation ---
PD HPI DYSPNEA - Stated complaint Stated Complaint: SOA,FATIGUE,CHEST PX - Chief complaint Chief Complaint: Cardiac - History obtained from History obtained from: Patient - History of Present Illness Timing - onset: Other (69-year-old woman with history of A. fib, not anticoagulated because of history of GI bleeding, and COPD. She presents with 3 to 4 days of shortness of breath especially exertional with some orthopnea, minimal cough. She denies chest pain. She feels "weak as a kitten." No pedal edema.) Review of Systems Ten Systems: 10 systems reviewed and negative Constitutional: reports: Fatigue. 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 : None HEENT: None Psych: None Musculoskeletal: Osteoarthritis, Chronic back pain, Other Derm: None - Past Surgical History Past Surgical History: Yes General: Cholecystectomy HEENT: Tonsil/Adenoidectomy - Present Medications Home Medications: Ambulatory Orders Medication Instructions Recorded Confirmed Ipratropium/Albuterol Inhaler 2 puffs INH 3-4XD PRN 10/21/13 03/04/20 [Combivent Inhaler] Fluticasone/Salmeterol [Advair 1 puffs IH DAILY 03/17/14 03/04/20 250-50 Diskus] Omeprazole 20 mg PO DAILY 12/04/19 03/04/20 Sucralfate 1 tab PO DAILY 12/04/19 03/04/20 diltiaZEM CD [Cardizem Cd] 120 mg PO BID 12/04/19 03/04/20 predniSONE [Deltasone] 20 mg PO [id number] #21 tab 04/08/20 - Allergies Allergies/Adverse Reactions: Allergies Allergy/AdvReac Type Severity Reaction Status Date / Time iodine Allergy Unknown unk Verified 04/08/20 09:30 Sulfa (Sulfonamide Allergy Unknown unk Verified 04/08/20 09:30 Antibiotics) codeine Allergy Unknown Verified 04/08/20 09:30 doxycycline Allergy Unknown Verified 04/08/20 09:30 ibuprofen Allergy Unknown Verified 04/08/20 09:30 Penicillins Allergy unk Verified 04/08/20 09:30 mycins Allergy Unknown Uncoded 04/08/20 09:30 - Social History Does the pt smoke?: Yes Smoking Status: Current every day smoker Does the pt drink ETOH?: No Does the pt have substance abuse?: No - Family History Family history: reports: Non contributory - Immunizations Immunizations are current?: Yes Immunizations: TDAP current <10years - POLST Patient has POLST: No PD ED PE NORMAL - Vitals Vital signs reviewed: Yes - General General: Alert and 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, No acute distress - HEENT HEENT: PERRL, EOMI - Neck Neck: Supple, no meningeal sign, No bony TTP - Cardiac Cardiac: RRR, No murmur - Respiratory Respiratory: Other (Diffusely wheezy and rhonchi at the bases, excellent air motion) - Abdomen Abdomen: Soft, Non tender - Back Back: No CVA TTP, No spinal TTP - Extremities Extremities: No edema, No calf tenderness / cord - Neuro Neuro: Alert and 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, Normal speech Results - Vitals Vitals: Vital Signs - 24 hr 04/08/20 04/08/20 04/08/20 09:15 10:00 10:08 Temperature 36.6 C Heart Rate 83 71 82 Respiratory 18 18 16 Rate Blood Pressure 132/103 H 108/72 O2 Saturation 98 96 04/08/20 10:30 Temperature Heart Rate 77 Respiratory 17 Rate Blood Pressure 113/62 O2 Saturation 96 Oxygen O2 Source Room air - EKG (time done) 0922 Rate: Rate (enter#) (76) Rhythm: NSR [place]: Normal Intervals: Normal NE QRS: Normal Ischemia: Normal ST segments Computer interpretation: Agree with computer - Labs Labs: Laboratory Tests 04/08/20 04/08/20 04/08/20 09:48 09:48 09:48 WBC 5.9 RBC 4.44 Hgb 13.8 Hct 41.5 MCV 93.5 MCH 31.1 H MCHC 33.3 RDW 13.2 Plt Count 305 MPV 10.8 Neut # (Auto) 3.5 Lymph # (Auto) 1.6 [place] # (Auto) 0.5 Eos # (Auto) 0.1 Baso # (Auto) 0.1 Absolute Nucleated RBC 0.00 Nucleated RBC % 0.0 Sodium 137 Potassium 3.8 Chloride 101 Carbon Dioxide 27 Anion Gap 9.0 BUN 10 Creatinine 0.5 Estimated GFR (MDRD) 122 Glucose 100 Calcium 9.6 Total Bilirubin 1.0 AST 22 ALT 22 Alkaline Phosphatase 88 B-Natriuretic Peptide 61 Total Protein 7.3 Albumin 4.5 Globulin 2.8 Albumin/Globulin Ratio 1.6 Lipase 37 - Rads (name of study) 1v CXR Radiology: EMP read contemporaneously (NAD) PD MEDICAL DECISION MAKING - ED course ED course: 69-year-old woman presents with 3 days of shortness of breath, also some abdominal cramps without diarrhea. The work-up is notable for no evidence of congestive heart failure or coronary issue. Labs look actually very good in general. Chest x-ray is clear without pneumonia. Clinically has a COPD exacerbation and is treated with steroids. No antibiotics given the lack of productive cough and intolerance to most. Departure - Departure Disposition: 01 Home, Self Care Clinical Impression: Moderate COPD (chronic obstructive pulmonary disease) Condition: Good Record reviewed to determine appropriate education?: Yes Instructions: COPD Dc Prescriptions: predniSONE [Deltasone] 20 mg PO [id number] #21 tab Comments: No evidence of a heart issue today, you should return for new or worsening symptoms. We will call if coronavirus testing is positive, follow-up with your doctor. Continue your efforts to try to quit smoking.
[2020-04-08 09:59] LABS: BASOPHILS # (AUTO) 0.1 10^3/uL (0.0-0.1); BASOPHILS % (AUTO) 1.2 %; EOSINOPHILS # (AUTO) 0.1 10^3/uL (0.0-0.7); EOSINOPHILS % (AUTO) 2.4 %; HGB - HEMOGLOBIN 13.8 g/dL (12.0-16.0); LYMPHOCYTES # (AUTO) 1.6 10^3/uL (1.5-3.5); LYMPHOCYTES % (AUTO) 26.6 %; MEAN CORPUSCULAR HEMOGLOBIN 31.1 pg (27.0-31.0); MEAN CORPUSCULAR HGB CONC 33.3 g/dL (32.0-36.0); MEAN CORPUSCULAR VOLUME 93.5 fL (81.0-99.0); MEAN PLATELET VOLUME 10.8 fL (7.9-10.8); MONOCYTES # (AUTO) 0.5 10^3/uL (0.0-1.0); MONOCYTES % (AUTO) 9.2 %; NEUTROPHILS # (AUTO) 3.5 10^3/uL (1.5-6.6); NEUTROPHILS % (AUTO) 60.3 %; PLT - PLATELET COUNT 305 10^3/uL (130-450); RED BLOOD COUNT 4.44 10^6/uL (4.20-5.40); RED CELL DISTRIBUTION WIDTH 13.2 % (12.0-15.0); WHITE BLOOD COUNT 5.9 x10^3/uL (4.8-10.8)
--- NOTE | 2020-04-08 09:59 | XRAY Report ---
PROCEDURE: Chest 1 View X-Ray INDICATIONS: dyspnea TECHNIQUE: One view of the chest was acquired. COMPARISON: Chest xray 02/11/20 FINDINGS: Surgical changes and devices: Pacer device. Lungs and pleura: No pleural effusions or pneumothorax. Lungs are clear. Mediastinum: Mediastinal contours appear normal. Heart size is normal. Bones and chest wall: No suspicious bony lesions. Overlying soft tissues appear unremarkable. IMPRESSION: No acute pulmonary process. Reviewed by: Sandra Woodward MD on 04/08/2020 9:58 AM PDT Approved by: Sandra Woodward MD on 04/08/2020 9:58 AM PDT Station ID: [id number]
[2020-04-08 10:13] LABS: ALBUMIN 4.5 g/dL (3.2-5.5); ALBUMIN/GLOBULIN RATIO 1.6 (1.0-2.2); CALCIUM 9.6 mg/dL (8.5-10.3); CREATININE 0.5 mg/dL (0.4-1.0); TOTAL PROTEIN 7.3 g/dL (6.7-8.2)
[2020-04-08 10:42] VITALS: BP 113/62
[2020-04-08] MEDS ORDERED: predniSONE 20 MG TABLET PO STA (10:49)
== END 2020-04-08 11:10 | disposition home or self-care (01) ==
LOC: ED 09:13
DX: J44.1 Chronic obstructive pulmonary disease with (acute) exacerbation (principal); F17.200 Nicotine dependence, unspecified, uncomplicated; R10.9 Unspecified abdominal pain; Z20.828 Contact with and (suspected) exposure to other viral communicable diseases; Z86.79 Personal history of other diseases of the circulatory system
CPT/HCPCS: 36415; 71045; 80053; 83690; 83880; 85025; 93005; 94640; 99284; J7512; U0004; 81599

== ENCOUNTER 2020-05-08 10:42 | Outpatient (CLI) | payer MEDICARE, BC ==
[2020-05-08 11:14] LABS: INR 1.4 (0.8-1.2); PT - PROTHROMBIN TIME 15.6 secs (9.9-12.6)
== END 2020-05-08 10:43 | disposition home or self-care (01) ==
LOC: LAB 10:42
PROVIDERS: ATTEND Nurse Practitioner Acute Care
DX: I48.0 Paroxysmal atrial fibrillation (principal); Z79.01 Long term (current) use of anticoagulants
CPT/HCPCS: 36415; 85610

== ENCOUNTER 2020-05-09 07:03 | Emergency (ER) | payer MEDICARE, BC ==
--- NOTE | 2020-05-09 07:22 | ED Physician Documentation ---
PD HPI DYSPNEA - Stated complaint Stated Complaint: POSS MED REACTION - Chief complaint Chief Complaint: General - History obtained from History obtained from: Patient, EMS - History of Present Illness Timing - onset: Today (A bit of a bad dream and awoke from it with a feeling of pounding fast heart rate some nausea sweatiness and short of breath. It lasted for perhaps an hour or so. She was concerned and called EMS. It was improving some on EMS arrival and they found her in a sinus rhythm with normal heart rate) Timing - onset during: Sleep Timing - duration: Hours (1-2) Timing - details: Abrupt onset, Now resolved Inciting event(s): No: Out of meds, URI Improved by: Other (just time improved it) Associated symptoms: Palpitations, Other (nausea and malaise). No: Fever, Cough, Wheezing, Bilateral edema Similar symptoms before: Has not had sx before Recently seen: Admitted (She was recently hospitalized for 3 days at [facility] in [place] to initiate a new antiarrhythmic Tikosyn. She had an episode of A. fib apparently there that lasted for an hour or 2 and improved. She does have a history of episodic paroxysmal A. fib.) Review of Systems Constitutional: reports: Myalgias. denies: Fever, Chills Nose: denies: Rhinorrhea / runny nose, Congestion Throat: denies: Sore throat Respiratory: denies: Dyspnea, Cough GI: reports: Nausea. 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 : None HEENT: None Psych: None Musculoskeletal: Osteoarthritis, Chronic back pain, Other Derm: None - Past Surgical History Past Surgical History: Yes General: Cholecystectomy HEENT: Tonsil/Adenoidectomy - Present Medications Home Medications: Ambulatory Orders Medication Instructions Recorded Confirmed Ipratropium/Albuterol Inhaler 2 puffs INH 3-4XD PRN 10/21/13 04/29/20 [Combivent Inhaler] Fluticasone/Salmeterol [Advair 1 puffs IH DAILY 03/17/14 04/29/20 250-50 Diskus] Omeprazole 20 mg PO DAILY 12/04/19 04/29/20 Sucralfate 1 tab PO DAILY 12/04/19 04/29/20 diltiaZEM CD [Cardizem Cd] 120 mg PO BID 12/04/19 04/29/20 predniSONE [Deltasone] 20 mg PO [id number] #21 tab 04/08/20 04/29/20 Dofetilide 05/09/20 - Allergies Allergies/Adverse Reactions: Allergies Allergy/AdvReac Type Severity Reaction Status Date / Time iodine Allergy Unknown unk Verified 05/09/20 07:12 Sulfa (Sulfonamide Allergy Unknown unk Verified 05/09/20 07:12 Antibiotics) Cephalosporins Allergy Unknown Verified 05/09/20 07:12 codeine Allergy Unknown Verified 05/09/20 07:12 doxycycline Allergy Unknown Verified 05/09/20 07:12 ibuprofen Allergy Unknown Verified 05/09/20 07:12 NSAIDS (Non-Steroidal Allergy Unknown Verified 05/09/20 07:12 Anti-Inflamma Penicillins Allergy unk Verified 05/09/20 07:12 shellfish derived Allergy Unknown Verified 05/09/20 07:12 mycins Allergy Unknown Uncoded 05/09/20 07:12 - Social History Does the pt smoke?: Yes Smoking Status: Current every day smoker Does the pt drink ETOH?: No Does the pt have substance abuse?: No - Immunizations Immunizations are current?: Yes Immunizations: TDAP current <10years - POLST Patient has POLST: No PD ED PE NORMAL - Vitals Vital signs reviewed: Yes - General General: Alert and 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, Well developed/nourished - HEENT HEENT: Pharynx benign - Neck Neck: Supple, no meningeal sign, No adenopathy - Cardiac Cardiac: RRR, No murmur - Respiratory Respiratory: Clear bilaterally - Abdomen Abdomen: Soft, Non tender - Back Back: No CVA TTP - Derm Derm: Normal color, Warm and dry - Extremities Extremities: No deformity, No tenderness to palpate, Normal ROM s pain, No edema, No calf tenderness / cord - Neuro Neuro: Alert and 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, No motor deficit, Normal speech Results - Vitals Vitals: Vital Signs - 24 hr 05/09/20 05/09/20 07:10 08:29 Temperature 36.9 C Heart Rate 77 71 Respiratory 20 20 Rate Blood Pressure 149/98 H 118/68 O2 Saturation 96 97 Oxygen O2 Source Room air - EKG (time done) 07:39 Rate: Rate (enter#) (70) Rhythm: NSR (with some PACs) Intervals: Normal CT. No: Prolonged QT QRS: Normal Ischemia: Normal ST segments. No: ST elevation c/w ischemia, ST depression - Labs Labs: Laboratory Tests 05/09/20 05/09/20 07:45 07:45 WBC 5.2 RBC 4.32 Hgb 13.6 Hct 41.6 MCV 96.3 MCH 31.5 H MCHC 32.7 RDW 13.0 Plt Count 355 MPV 10.7 Neut # (Auto) 2.7 Lymph # (Auto) 1.5 [place] # (Auto) 0.5 Eos # (Auto) 0.4 Baso # (Auto) 0.1 Absolute Nucleated RBC 0.00 Nucleated RBC % 0.0 Sodium 139 Potassium 3.6 Chloride 100 L Carbon Dioxide 30 Anion Gap 9.0 BUN 14 Creatinine 0.5 Estimated GFR (MDRD) 122 Glucose 102 H Calcium 9.3 Magnesium 1.9 Total Bilirubin 0.8 AST 21 ALT 21 Alkaline Phosphatase 93 Total Protein 7.3 Albumin 4.4 Globulin 2.9 Albumin/Globulin Ratio 1.5 Lipase 34 PD MEDICAL DECISION MAKING - ED course Complexity details: reviewed results, re-evaluated patient (Remains feeling well here in the ER. Prolonged ER stay due to awaiting callback from cardiology. It took over an hour and a half for return call. However given the new medication it did seem appropriate to discuss with him), considered differential (Sounds likely to have been an episode of rapid A. fib. She has a normal rhythm now. We will check electrolytes. Her EKG does not show any QT prolongation or conductive abnormality. We will contact the EPS administration assistant at [facility] to review the symptoms), d/w patient, d/w senior internet sales consultant (Talked with the on-call cardiology's provider who said episodes of breakthrough A. fib are common. Given her normal conduct eddy on the EKG and electrolytes in the normal range, she can go home with continuation of the current medicines.) Departure - Departure Disposition: 01 Home, Self Care Clinical Impression: Paroxysmal atrial fibrillation, Nausea Condition: Stable Record reviewed to determine appropriate education?: Yes Comments: Talked with the on-call cardiology provider who said you are okay to go home without any change in your treatment. Contact them if you have recurrent episodes like this and they can set up a monitor again. Otherwise continue your current medications.
[2020-05-09 07:54] LABS: BASOPHILS # (AUTO) 0.1 10^3/uL (0.0-0.1); BASOPHILS % (AUTO) 1.5 %; EOSINOPHILS # (AUTO) 0.4 10^3/uL (0.0-0.7); EOSINOPHILS % (AUTO) 6.7 %; HGB - HEMOGLOBIN 13.6 g/dL (12.0-16.0); LYMPHOCYTES # (AUTO) 1.5 10^3/uL (1.5-3.5); MEAN CORPUSCULAR HEMOGLOBIN 31.5 pg (27.0-31.0); MEAN CORPUSCULAR HGB CONC 32.7 g/dL (32.0-36.0); MEAN CORPUSCULAR VOLUME 96.3 fL (81.0-99.0); MEAN PLATELET VOLUME 10.7 fL (7.9-10.8); MONOCYTES # (AUTO) 0.5 10^3/uL (0.0-1.0); MONOCYTES % (AUTO) 10.4 %; NEUTROPHILS # (AUTO) 2.7 10^3/uL (1.5-6.6); NEUTROPHILS % (AUTO) 52.2 %; PLT - PLATELET COUNT 355 10^3/uL (130-450); RED BLOOD COUNT 4.32 10^6/uL (4.20-5.40); WHITE BLOOD COUNT 5.2 x10^3/uL (4.8-10.8)
[2020-05-09 08:05] LABS: ALBUMIN 4.4 g/dL (3.2-5.5); ALBUMIN/GLOBULIN RATIO 1.5 (1.0-2.2); BILIRUBIN,TOTAL 0.8 mg/dL (0.2-1.0); CALCIUM 9.3 mg/dL (8.5-10.3); CREATININE 0.5 mg/dL (0.4-1.0); MAGNESIUM 1.9 mg/dL (1.7-2.8); TOTAL PROTEIN 7.3 g/dL (6.7-8.2)
[2020-05-09 08:30] VITALS: BP 118/68
[2020-05-09 10:21] LABS: INR 1.6 (0.8-1.2); PT - PROTHROMBIN TIME 17.3 secs (9.9-12.6)
== END 2020-05-09 10:21 | disposition home or self-care (01) ==
LOC: EDUNIT# → ED 07:03
DX: I48.91 Unspecified atrial fibrillation (principal); R11.0 Nausea; F17.200 Nicotine dependence, unspecified, uncomplicated
CPT/HCPCS: 36415; 80053; 83690; 83735; 85025; 85610; 93005; 99284

== ENCOUNTER 2020-05-18 12:44 | Outpatient (CLI) | payer MEDICARE, BC | END 2020-05-18 12:45 | disposition home or self-care (01) | LOC: LAB 12:44 | PROVIDERS: ATTEND Internal Medicine Cardiovascular Disease | DX: Z53.9 Procedure and treatment not carried out, unspecified reason (principal) | CPT/HCPCS: 85610 ==

== ENCOUNTER 2020-06-18 12:22 | Outpatient (CLI) | payer MEDICARE, BC ==
[2020-06-18 12:50] LABS: ALBUMIN 4.8 g/dL (3.2-5.5); ALBUMIN/GLOBULIN RATIO 1.8 (1.0-2.2); BILIRUBIN,TOTAL 0.3 mg/dL (0.2-1.0); CALCIUM 9.9 mg/dL (8.5-10.3); CREATININE 0.6 mg/dL (0.4-1.0); MAGNESIUM 1.9 mg/dL (1.7-2.8); TOTAL PROTEIN 7.5 g/dL (6.7-8.2)
== END 2020-06-18 12:23 | disposition home or self-care (01) ==
LOC: LAB 12:22
PROVIDERS: ATTEND Nurse Practitioner Acute Care
DX: I48.0 Paroxysmal atrial fibrillation (principal)
CPT/HCPCS: 36415; 80053; 83735; 84443

== ENCOUNTER 2020-06-30 11:23 | Outpatient (CLI) | payer MEDICARE, BC | END 2020-06-30 11:24 | disposition home or self-care (01) | LOC: LAB 11:23 | PROVIDERS: ATTEND Internal Medicine Cardiovascular Disease | DX: I48.0 Paroxysmal atrial fibrillation (principal) | CPT/HCPCS: 85610 ==

== ENCOUNTER 2020-07-10 10:26 | Outpatient (CLI) | payer MEDICARE, BC | END 2020-07-10 10:27 | disposition home or self-care (01) | LOC: LAB 10:26 | PROVIDERS: ATTEND Internal Medicine Cardiovascular Disease | DX: I48.0 Paroxysmal atrial fibrillation (principal) | CPT/HCPCS: 85610 ==

== ENCOUNTER 2020-07-17 10:40 | Outpatient (CLI) | payer MEDICARE, BC | END 2020-07-17 10:41 | disposition home or self-care (01) | LOC: LAB 10:40 | PROVIDERS: ATTEND Internal Medicine Cardiovascular Disease | DX: I48.0 Paroxysmal atrial fibrillation (principal) | CPT/HCPCS: 85610 ==

== ENCOUNTER 2020-07-24 13:57 | Outpatient (CLI) | payer MEDICARE, BC | END 2020-07-24 13:58 | disposition home or self-care (01) | LOC: LAB 13:57 | PROVIDERS: ATTEND Internal Medicine Cardiovascular Disease | DX: I48.0 Paroxysmal atrial fibrillation (principal) | CPT/HCPCS: 85610 ==

== ENCOUNTER 2020-08-07 13:27 | Outpatient (CLI) | payer MEDICARE, BC | END 2020-08-07 13:28 | disposition home or self-care (01) | LOC: LAB 13:27 | PROVIDERS: ATTEND Internal Medicine Cardiovascular Disease | DX: I48.0 Paroxysmal atrial fibrillation (principal) | CPT/HCPCS: 85610 ==

== ENCOUNTER 2020-08-21 12:45 | Outpatient (CLI) | payer MEDICARE, BC | END 2020-08-21 12:46 | disposition home or self-care (01) | LOC: LAB 12:45 | PROVIDERS: ATTEND Internal Medicine Cardiovascular Disease | DX: I48.0 Paroxysmal atrial fibrillation (principal) | CPT/HCPCS: 85610 ==

== ENCOUNTER 2020-09-04 13:38 | Outpatient (CLI) | payer MEDICARE, BC ==
[2020-09-04 14:39] LABS: BASOPHILS # (AUTO) 0.1 10^3/uL (0.0-0.1); EOSINOPHILS # (AUTO) 0.2 10^3/uL (0.0-0.7); EOSINOPHILS % (AUTO) 2.5 %; HGB - HEMOGLOBIN 14.2 g/dL (12.0-16.0); LYMPHOCYTES # (AUTO) 2.4 10^3/uL (1.5-3.5); LYMPHOCYTES % (AUTO) 31.2 %; MEAN CORPUSCULAR HEMOGLOBIN 31.8 pg (27.0-31.0); MEAN CORPUSCULAR VOLUME 96.2 fL (81.0-99.0); MEAN PLATELET VOLUME 10.7 fL (7.9-10.8); MONOCYTES # (AUTO) 0.7 10^3/uL (0.0-1.0); MONOCYTES % (AUTO) 8.8 %; NEUTROPHILS # (AUTO) 4.3 10^3/uL (1.5-6.6); PLT - PLATELET COUNT 330 10^3/uL (130-450); RED BLOOD COUNT 4.47 10^6/uL (4.20-5.40); RED CELL DISTRIBUTION WIDTH 13.6 % (12.0-15.0); WHITE BLOOD COUNT 7.7 x10^3/uL (4.8-10.8)
[2020-09-04 15:13] LABS: % IRON SATURATION 18 % (20-50); IRON 71 ug/dL (28-170); TOTAL IRON BINDING CAPACITY 385 ug/dL (250-450); TRANSFERRIN 275 mg/dL (192-382)
== END 2020-09-04 13:39 | disposition home or self-care (01) ==
LOC: LAB 13:38
PROVIDERS: ATTEND Internal Medicine Cardiovascular Disease
DX: I48.0 Paroxysmal atrial fibrillation (principal); D50.9 Iron deficiency anemia, unspecified
CPT/HCPCS: 36415; 82728; 83540; 84466; 85025; 85610

== ENCOUNTER 2020-09-18 14:33 | Outpatient (CLI) | payer MEDICARE, BC | END 2020-09-18 14:34 | disposition home or self-care (01) | LOC: LAB 14:33 | PROVIDERS: ATTEND Internal Medicine Cardiovascular Disease | DX: I48.0 Paroxysmal atrial fibrillation (principal) | CPT/HCPCS: 85610 ==

== ENCOUNTER 2020-10-07 12:23 | Outpatient (CLI) | payer MEDICARE, BC | END 2020-10-07 12:24 | disposition home or self-care (01) | LOC: LAB 12:23 | PROVIDERS: ATTEND Internal Medicine Cardiovascular Disease | DX: I48.0 Paroxysmal atrial fibrillation (principal) | CPT/HCPCS: 85610 ==

== ENCOUNTER 2020-10-20 11:02 | Outpatient (CLI) | payer MEDICARE, BC ==
[2020-10-20 11:32] LABS: CALCIUM 9.7 mg/dL (8.5-10.3); CREATININE 0.7 mg/dL (0.4-1.0)
== END 2020-10-20 11:03 | disposition home or self-care (01) ==
LOC: LAB 11:02
PROVIDERS: ATTEND Pharmacist
DX: I48.0 Paroxysmal atrial fibrillation (principal); Z51.81 Encounter for therapeutic drug level monitoring; Z79.899 Other long term (current) drug therapy
CPT/HCPCS: 36415; 80048; 85610

== ENCOUNTER 2020-11-10 11:32 | Outpatient (CLI) | payer MEDICARE, BC | END 2020-11-10 11:33 | disposition home or self-care (01) | LOC: LAB 11:32 | PROVIDERS: ATTEND Pharmacist | DX: I48.0 Paroxysmal atrial fibrillation (principal) | CPT/HCPCS: 85610 ==

== ENCOUNTER 2021-04-02 08:00 | Outpatient (CLI) | payer MEDICARE, BC | END 2021-04-02 23:59 | disposition home or self-care (01) | LOC: LAB 08:00 | PROVIDERS: ATTEND Pharmacist | DX: I48.0 Paroxysmal atrial fibrillation (principal) | CPT/HCPCS: 85610 ==

== ENCOUNTER 2021-04-03 05:54 | Outpatient (CLI) | payer MEDICARE, BC | END 2021-04-03 05:55 | disposition critical access hospital (66) | LOC: EMS 05:54 | DX: R00.0 Tachycardia, unspecified (principal) | CPT/HCPCS: A0425; A0429 ==

== ENCOUNTER 2021-04-03 06:02 | Emergency (ER) | payer MEDICARE, BC ==
--- NOTE | 2021-04-03 06:40 | ED Physician Documentation ---
History of Present Illness - Stated complaint Stated Complaint: RAPID HR - Chief complaint Chief Complaint: Cardiac - History obtained from History obtained from: Patient - History of Present Illness Timing: Enter time (0230) - Additonal information Additional information: 70-year-old female with a history of intermittent atrial fibrillation on Coumadin has a pacemaker in place and she has a history of intermittent rapid ventricular response. She has had near syncope associated with this. She relates that she was in her usual state of health yesterday and at 2:30 in the morning she awoke feeling of rapid irregular heart and she states this happens to her periodically and usually does not last. She was up and down most of the rest of the night and at 5:30 in the morning she developed an acute episode that took her breath away and lasted briefly. She was able to call 911 but felt that, during the time she was calling them, she might pass out. Her symptoms resolved and she is now symptom-free and has been transported the hospital in sinus rhythm. Review of Systems Constitutional: denies: Fever Eyes: denies: Decreased vision Ears: reports: Tinnitus/ringing. denies: Ear pain Nose: denies: Congestion Throat: denies: Sore throat Cardiac: reports: Chest pain / pressure (transient this morning). denies: Palpitations Respiratory: reports: Dyspnea (transient this morning), Cough (usual smokers cough). denies: Wheezing GI: denies: Abdominal Pain, Nausea, Vomiting, Diarrhea : denies: Dysuria, Frequency Skin: denies: Rash Musculoskeletal: denies: Neck pain, Back pain, Extremity pain Neurologic: denies: Generalized weakness, Focal weakness, Numbness PD PAST MEDICAL HISTORY - Past Medical History Past Medical History: Yes Cardiovascular: Atrial fibrillation, Arrhythmia Respiratory: COPD Neuro: None Endocrine/Autoimmune: None GI: None SHOPPER'S AIDE: None : None HEENT: None Psych: None Musculoskeletal: Osteoarthritis, Chronic back pain, Other Derm: None - Past Surgical History Past Surgical History: Yes General: Cholecystectomy HEENT: Tonsil/Adenoidectomy - Present Medications Home Medications: Ambulatory Orders Medication Instructions Recorded Confirmed Ipratropium/Albuterol Inhaler 2 puffs INH 3-4XD PRN 10/21/13 04/03/21 [Combivent Inhaler] [id number] CD [Cardizem Cd] 180 mg PO DAILY 12/04/19 04/03/21 Warfarin [Coumadin] 3 mg PO DAILY 05/27/20 04/03/21 Acetaminophen [Tylenol Extra 500 mg PO Q6HR PRN 07/27/20 04/03/21 Strength] Fluticasone 44 Mcg [Flovent] 2 puffs PO BID 07/27/20 04/03/21 Magnesium Oxide [Mag Ox] 1 tab PO BID 07/27/20 04/03/21 Nicotine Polacrilex [Nicotine 1 tab PO DAILY PRN 07/27/20 04/03/21 Lozenge] Potassium Chloride [Klor-Con M20] 1 tab PO DAILY 07/27/20 04/03/21 Simethicone [Gas-X] 1 tab PO TID PRN 07/27/20 04/03/21 Umeclidinium Brm/Vilanterol Tr 1 puffs PO DAILY 07/27/20 04/03/21 [Anoro Ellipta 62.5-25 Mcg INH] polyethylene glycoL 3350 [Miralax] 1 pkg PO DAILY 07/27/20 04/03/21 Albuterol Sulfate [Proair 90 mcg INH PRN PRN 11/11/20 04/03/21 Respiclick] Diazepam [Valium] 25 mg PO PRN PRN 11/11/20 04/03/21 Dofetilide [Tikosyn] 250 mcg PO BID 11/11/20 04/03/21 - Allergies Allergies/Adverse Reactions: Allergies Allergy/AdvReac Type Severity Reaction Status Date / Time iodine Allergy Unknown unk Verified 04/03/21 06:11 Sulfa (Sulfonamide Allergy Unknown unk Verified 04/03/21 06:11 Antibiotics) Cephalosporins Allergy Unknown Verified 04/03/21 06:11 codeine Allergy Unknown Verified 04/03/21 06:11 doxycycline Allergy Unknown Verified 04/03/21 06:11 ibuprofen Allergy Unknown Verified 04/03/21 06:11 NSAIDS (Non-Steroidal Allergy Unknown Verified 04/03/21 06:11 Anti-Inflamma Penicillins Allergy unk Verified 04/03/21 06:11 shellfish derived Allergy Unknown Verified 04/03/21 06:11 mycins Allergy Unknown Uncoded 04/03/21 06:11 - Social History Does the pt smoke?: Yes Smoking Status: Current every day smoker Does the pt drink ETOH?: No Does the pt have substance abuse?: No - Immunizations Immunizations are current?: Yes Immunizations: TDAP current <10years - POLST Patient has POLST: No PD ED PE NORMAL - Vitals Vital signs reviewed: Yes (hypertensive ) - General General: No acute distress, Well developed/nourished - HEENT HEENT: Atraumatic, PERRL, EOMI - Neck Neck: Supple, no meningeal sign, No bony TTP - Cardiac Cardiac: RRR, No murmur - Respiratory Respiratory: No respiratory distress, Clear bilaterally - Abdomen Abdomen: Normal bowel sounds, Soft, Non tender, Non distended, No organomegaly - Back Back: No CVA TTP, No spinal TTP - Derm Derm: Normal color, Warm and dry, No rash - Extremities Extremities: No deformity, No edema - Neuro Neuro: Alert and 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, advertising traffic 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 2-12 intact, No motor deficit, No sensory deficit, Normal speech Eye Opening: Spontaneous Motor: Obeys Commands Verbal: Oriented GCS Score: 15 - Psych Psych: Normal mood, Normal affect Results - Vitals Vitals: Vital Signs - 24 hr 04/03/21 04/03/21 04/03/21 06:05 06:36 07:30 Temperature 36.8 C 36.6 C Heart Rate 86 75 66 Respiratory 22 18 16 Rate Blood Pressure 178/109 H 125/81 H 123/81 H O2 Saturation 96 95 94 Oxygen O2 Source Room air - EKG (time done) 0601 Rate: Rate (enter#) (86) [place]: RAD Compare to prior EKG: Unchanged from prior EKG (SPT 05-09-2020 no sig change) Computer interpretation: Agree with computer - Labs Labs: Laboratory Tests 04/03/21 04/03/21 04/03/21 06:44 06:44 06:44 WBC 7.4 RBC 4.49 Hgb 14.2 Hct 42.8 MCV 95.3 MCH 31.6 H MCHC 33.2 RDW 13.0 Plt Count 311 MPV 10.7 Neut # (Auto) 4.4 Lymph # (Auto) 2.0 [place] # (Auto) 0.7 Eos # (Auto) 0.2 Baso # (Auto) 0.1 Absolute Nucleated RBC 0.00 Nucleated RBC % 0.0 PT 21.2 H INR 2.0 H Sodium 138 Potassium 3.8 Chloride 100 L Carbon Dioxide 30 Anion Gap 8.0 BUN 16 Creatinine 0.7 Estimated GFR (MDRD) 82 L Glucose 105 H Calcium 10.0 Magnesium Total Bilirubin 0.9 AST 20 ALT 22 Alkaline Phosphatase 59 Troponin I High Sens Total Protein 7.8 Albumin 4.9 Globulin 2.9 Albumin/Globulin Ratio 1.7 Lipase 31 TSH Urine Color Urine Clarity Urine pH Ur Specific [place] Urine Protein Urine Glucose (UA) Urine Ketones Urine Occult Blood Urine Nitrite Urine Bilirubin Urine Urobilinogen Ur Leukocyte Esterase Ur Microscopic Review Urine Culture Comments 04/03/21 04/03/21 04/03/21 06:44 06:44 06:44 WBC RBC Hgb Hct MCV MCH MCHC RDW Plt Count MPV Neut # (Auto) Lymph # (Auto) [place] # (Auto) Eos # (Auto) Baso # (Auto) Absolute Nucleated RBC Nucleated RBC % PT INR Sodium Potassium Chloride Carbon Dioxide Anion Gap BUN Creatinine Estimated GFR (MDRD) Glucose Calcium Magnesium 2.1 Total Bilirubin AST ALT Alkaline Phosphatase Troponin I High Sens 8.6 Total Protein Albumin Globulin Albumin/Globulin Ratio Lipase TSH 1.36 Urine Color Urine Clarity Urine pH Ur Specific [place] Urine Protein Urine Glucose (UA) Urine Ketones Urine Occult Blood Urine Nitrite Urine Bilirubin Urine Urobilinogen Ur Leukocyte Esterase Ur Microscopic Review Urine Culture Comments 04/03/21 07:20 WBC RBC Hgb Hct MCV MCH MCHC RDW Plt Count MPV Neut # (Auto) Lymph # (Auto) [place] # (Auto) Eos # (Auto) Baso # (Auto) Absolute Nucleated RBC Nucleated RBC % PT INR Sodium Potassium Chloride Carbon Dioxide Anion Gap BUN Creatinine Estimated GFR (MDRD) Glucose Calcium Magnesium Total Bilirubin AST ALT Alkaline Phosphatase Troponin I High Sens Total Protein Albumin Globulin Albumin/Globulin Ratio Lipase TSH Urine Color YELLOW Urine Clarity CLEAR Urine pH 7.0 Ur Specific [place] 1.015 Urine Protein TRACE Urine Glucose (UA) NEGATIVE Urine Ketones NEGATIVE Urine Occult Blood NEGATIVE Urine Nitrite NEGATIVE Urine Bilirubin NEGATIVE Urine Urobilinogen 0.2 (NORMAL) Ur Leukocyte Esterase NEGATIVE Ur Microscopic Review NOT INDICATED Urine Culture Comments NOT INDICATED - Rads (name of study) chest Radiology: Prelim report reviewed (Impression: 1. No acute cardiopulmonary process.), EMP read indepedently, See rad report Procedures - IVC sono (time) 0634 Bedside IVC sono: IVC measures (cm) (1.55), IVC collapsed c insp (cm) (0.60), [facility]ole[facility] PD MEDICAL DECISION MAKING - ED course Complexity details: reviewed results, re-evaluated patient, considered differential, d/w patient ED course: 70-year-old female with a history of intermittent atrial fibrillation with rapid ventricular response has a pacemaker in place she is on Coumadin she has been evaluated for iron deficiency anemia and today all of her studies are essentially normal. She no longer has anemia she has normal Trope normal TSH normal electrolytes normal potassium normal urinalysis. We did call [facility] and they were able to pull up the record from prior to last night but the patient will need to go home to push her button to get today's readings. I have discussed this with the compliance technician he will call us if he is able to get these readings. Departure - Departure Disposition: 01 Home, Self Care Clinical Impression: Paroxysmal atrial fibrillation Instructions: ED Afib Follow-Up: Shalini Oliveira MD [Primary Care Provider] - Discharge Date/Time: 04/03/21 08:55
[2021-04-03 07:09] LABS: BASOPHILS # (AUTO) 0.1 10^3/uL (0.0-0.1); BASOPHILS % (AUTO) 1.1 %; EOSINOPHILS # (AUTO) 0.2 10^3/uL (0.0-0.7); EOSINOPHILS % (AUTO) 2.8 %; HCT - HEMATOCRIT 42.8 % (37.0-47.0); HGB - HEMOGLOBIN 14.2 g/dL (12.0-16.0); LYMPHOCYTES % (AUTO) 26.7 %; MEAN CORPUSCULAR HEMOGLOBIN 31.6 pg (27.0-31.0); MEAN CORPUSCULAR HGB CONC 33.2 g/dL (32.0-36.0); MEAN CORPUSCULAR VOLUME 95.3 fL (81.0-99.0); MEAN PLATELET VOLUME 10.7 fL (7.9-10.8); MONOCYTES # (AUTO) 0.7 10^3/uL (0.0-1.0); MONOCYTES % (AUTO) 9.1 %; NEUTROPHILS # (AUTO) 4.4 10^3/uL (1.5-6.6); PLT - PLATELET COUNT 311 10^3/uL (130-450); PT - PROTHROMBIN TIME 21.2 secs (9.9-12.6); RED BLOOD COUNT 4.49 10^6/uL (4.20-5.40); WHITE BLOOD COUNT 7.4 x10^3/uL (4.8-10.8)
[2021-04-03 07:11] LABS: ALBUMIN 4.9 g/dL (3.2-5.5); ALBUMIN/GLOBULIN RATIO 1.7 (1.0-2.2); BILIRUBIN,TOTAL 0.9 mg/dL (0.2-1.0); CREATININE 0.7 mg/dL (0.4-1.0); POTASSIUM 3.8 mmol/L (3.5-5.0); TOTAL PROTEIN 7.8 g/dL (6.7-8.2)
--- NOTE | 2021-04-03 07:20 | XRAY Report ---
PROCEDURE: Chest 1 View X-Ray INDICATIONS: chest pain TECHNIQUE: One view of the chest was acquired. COMPARISON: 04/08/2020 FINDINGS: Surgical changes and devices: Left chest wall pacemaker leads are in the region of right atrium and r ight ventricle.. Lungs and pleura: No pleural effusions or pneumothorax. Lungs are clear. Mediastinum: Mediastinal contours appear normal. Heart size is normal. Bones and chest wall: No suspicious bony lesions. Overlying soft tissues appear unremarkable. IMPRESSION: No acute cardiopulmonary pathology. Reviewed by: Jadon Schultz MD on 04/03/2021 7:19 AM PDT Approved by: Jadon Schultz MD on 04/03/2021 7:19 AM PDT Station ID: [id number]
[2021-04-03 07:31] VITALS: BP 123/81
[2021-04-03 07:37] LABS: BILIRUBIN,URINE NEGATIVE (NEGATIVE); GLUCOSE, URINE (UA) NEGATIVE (NEGATIVE); KETONES,URINE (UA) NEGATIVE (NEGATIVE); LEUKOCYTE ESTERASE, URINE NEGATIVE (NEGATIVE); NITRITE,URINE NEGATIVE (NEGATIVE); OCCULT BLOOD,URINE NEGATIVE (NEGATIVE); PROTEIN,URINE TRACE mg/dL (NEGATIVE); UROBILINOGEN,URINE 0.2 (NORMAL) E.U./dL (NORMAL)
[2021-04-03 07:40] LABS: CLARITY,URINE CLEAR (CLEAR)
== END 2021-04-03 08:55 | disposition home or self-care (01) ==
LOC: EDBD → ED 06:02
DX: I48.0 Paroxysmal atrial fibrillation (principal); Z79.01 Long term (current) use of anticoagulants; Z95.0 Presence of cardiac pacemaker; F17.200 Nicotine dependence, unspecified, uncomplicated
CPT/HCPCS: 36415; 80053; 81001; 81003; 83690; 83735; 84443; 84484; 85025; 85610; 87086; 93005; 99284

== ENCOUNTER 2021-04-28 11:22 | Outpatient (CLI) | payer MEDICARE, BC | END 2021-04-28 11:23 | disposition home or self-care (01) | LOC: LAB 11:22 | PROVIDERS: ATTEND Pharmacist | DX: I48.0 Paroxysmal atrial fibrillation (principal) | CPT/HCPCS: 36416; 85610 ==

== ENCOUNTER 2021-04-30 10:42 | Outpatient (CLI) | payer MEDICARE, BC ==
--- NOTE | 2021-04-28 13:57 | HEMATOLOGY FOLLOW UP ---
Hematology Follow-Up: Reason for Follow-up: Iron deficiency anemia Oncology History: 1. 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 Atrial fibrillation with RVR currently on anticoagulation and antiarrhythmic Status post pacemaker placement -Currently on dofetilide -Remains on anticoagulation with warfarin with cardiac monitoring -07/13/2020pacemaker placement/watchman device 3. Generalized fatigue CC/HPI: Patient returns for ongoing follow-up of the above medical issues Since last seen, patient has ongoing fatigue and palpitations and was recently seen in the emergency room on 04/03/2021 for near syncopal episode with no clear etiology for this. 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 She denies any chest pain but has ongoing issues with back pain particularly whenever she coughs but has not yet done x-rays of her L-spine or pelvis She denies any acute onset pain however she feels that the chronic pain has been sucking out her energy levels ECO-1 Past Medical/Surgical/Family/Social History: Reviewed from note dated 10/21/2013 and unchanged Today except per HPI Physical Examination: General: No acute distress. HEENT: No sclera icterus. Oropharynx clear. Neck: No thyromegaly. Lymph nodes: No cervical, supraclavicular, axillary, epitrochlear, or inguinal node adenopathy. Lungs: Clear to auscultation and percussion. Heart: Regular rate and rhythm, no gallops or rubs heard. Breasts: Bilateral Not examined. Abdomen: Soft, nontender, normal bowel sounds. No palpable hepatosplenomegaly. No ascites appreciated. Extremities: No cyanosis, clubbing; legs no pitting edema. Skeletal: Nontender to percussion and palpation over spine, ribs, costovertebral angle. Skin: No petechiae, or purpura. No Rash. Neuro: Alert, oriented, appropriate, able to participate in discussion and decisions. Cranial nerves 3, 4, 6, 7, 9, 10, 11, and 12 intact. Gait normal. LAB/PATHOLOGY REVIEW: Available labs/pathology reviewed. IMAGING: Available imaging reviewed. ASSESSMENT AND PLAN: 1. Recurrent iron deficiency anemia likely in the setting of known GI telangiectasias -As previously documented, the patient is not currently candidate for definitive therapy even if she were to be found to have a clear GI source for bleeding, apart from known GI telangiectasias. Her iron levels are stable today but mildly decreased with transferrin saturation of 16%, ferritin levels remaining elevated in the 250 range, artificially elevated in the setting of chronic inflammatory sources - We will hold off on IV INFeD today - Reschedule IV INFeD for 4 weeks from now 2. Atrial fibrillation with RVR-Currently actively managed by cardiology, on antiarrhythmics. Reviewed LFTs and creatinine with patient today which are within normal limits -Continue on anticoagulation and antiarrhythmic per cardiology -Continue with pacemaker management -Patient to bring labs to continuous vulcanizing machine operator office 3.Generalized fatigue- Discussed that her fatigue is likely multifactorial, unlikely to be due to hematologic process given normal hemoglobin and iron levels within normal limits, but could also be multifactorial in the setting of underlying pain -Continue to monitor -IV iron as above 4.Chronic lumbar back pain of unclear etiology-this has been chronic possibly due to osteoarthritis and sciatica related pain, no recent interventions. Previous multiple myeloma work-up performed approximately a year ago was negative for any monoclonal gammopathy. Patient missed x-ray appointment last time but will get x-rays tomorrow -Check L-spine, pelvis and sacral x-rays to evaluate for subacute fracture -DEXA scan to screen for osteoporosis Follow-up: For weeks for repeat labs and assessment for IV iron E/M code was selected based on 35 minutes spent on the date of encounter reviewing pertinent history and previous diagnostics, performing medically appropriate examination and evaluation, ordering diagnostic tests and/or medications, counseling and education to patient/family/caregiver. This excludes activities performed by clinical staff Clinical Data: Allergies iodine Allergy (Unknown, Verified 04/03/21 06:11) unk Sulfa (Sulfonamide Antibiotics) Allergy (Unknown, Verified 04/03/21 06:11) unk Cephalosporins Allergy (Verified 04/03/21 06:11) Unknown codeine Allergy (Verified 04/03/21 06:11) Unknown doxycycline Allergy (Verified 04/03/21 06:11) Unknown ibuprofen Allergy (Verified 04/03/21 06:11) Unknown NSAIDS (Non-Steroidal Anti-Inflamma Allergy (Verified 04/03/21 06:11) Unknown Penicillins Allergy (Verified 04/03/21 06:11) unk shellfish derived Allergy (Verified 04/03/21 06:11) Unknown mycins Allergy (Uncoded 04/03/21 06:11) Unknown Home Medications Ipratropium/Albuterol Inhaler [Combivent Inhaler] 2 puffs INH 3-4XD PRN 10/21/13 [History Last Taken 04/02/21] diltiaZEM CD [Cardizem Cd] 180 mg PO DAILY 12/04/19 [History Last Taken 04/02/21] Warfarin [Coumadin] 3 mg PO DAILY 05/27/20 [History Last Taken 04/02/21] Acetaminophen [Tylenol Extra Strength] 500 mg PO Q6HR PRN 07/27/20 [History Last Taken 04/02/21] Fluticasone 44 Mcg [Flovent] 2 puffs PO BID 07/27/20 [History Last Taken ] Magnesium Oxide [Mag Ox] 1 tab PO BID 07/27/20 [History Last Taken 04/02/21] Nicotine Polacrilex [Nicotine Lozenge] 1 tab PO DAILY PRN 07/27/20 [History Last Taken 04/02/21] Potassium Chloride [Klor-Con M20] 1 tab PO DAILY 07/27/20 [History Last Taken 04/02/21] Simethicone [Gas-X] 1 tab PO TID PRN 07/27/20 [History Last Taken 04/02/21] Umeclidinium Brm/Vilanterol Tr [Anoro Ellipta 62.5-25 Mcg INH] 1 puffs PO DAILY 07/27/20 [History Last Taken 04/02/21] polyethylene glycoL 3350 [Miralax] 1 pkg PO DAILY 07/27/20 [History Last Taken 04/02/21] Albuterol Sulfate [Proair Respiclick] 90 mcg INH PRN PRN 11/11/20 [History Last Taken 04/02/21] Diazepam [Valium] 25 mg PO PRN PRN 11/11/20 [History Last Taken 04/02/21] Dofetilide [Tikosyn] 250 mcg PO BID 11/11/20 [History Last Taken 04/02/21]
--- NOTE | 2021-04-30 13:01 | XRAY Report ---
PROCEDURE: Lumbar Spine 2 View INDICATIONS: LOW BACK PAIN TECHNIQUE: 4 views of the lumbar spine were acquired. COMPARISON: None. FINDINGS: Bones: 5 [id number] vertebrae are present. There is grade 1 5 mm anterolisthesis of L4 on L5. D iffuse osteopenia is seen. Moderate to severe degenerative endplate changes and bilateral facet arthr osis throughout number spine is seen.. No vertebral body compression fractures. No suspicious bony lesions. Soft tissues: Overlying bowel gas pattern is normal. No suspicious soft tissue calcifications. IMPRESSION: Grade 1 anterolisthesis of L4 on L5. No acute compression fracture. Degenerative disc di sease and bilateral facet arthrosis throughout lumbar spine. Reviewed by: Jadon Schultz MD on 04/30/2021 12:59 PM PDT Approved by: Jadon Schultz MD on 04/30/2021 12:59 PM PDT Station ID: [id number]
--- NOTE | 2021-04-30 13:02 | XRAY Report ---
PROCEDURE: Pelvis 1 View INDICATIONS: LOW BACK PAIN TECHNIQUE: 1 view(s) of the pelvis acquired. COMPARISON: None. FINDINGS: Bones: No fractures or dislocations. Mild bilateral hip joint osteoarthritic changes are seen. No ev idence of avascular necrosis of femoral head. Osteoarthritic changes also noted in bilateral sacroili ac joints without bony erosion or ankylosis. No suspicious bony lesions. Degenerative disc disease i n visualized lower lumbar spine is seen. Soft tissues: Visualized bowel gas pattern is normal. No suspicious soft tissue calcifications. IMPRESSION: Osteoarthritis throughout the bony pelvis. No fracture or dislocation. No evidence of raya scular necrosis of femoral head. No ankylosis or erosion is seen in bilateral sacroiliac joints. Reviewed by: Jadon Schultz MD on 04/30/2021 1:01 PM PDT Approved by: Jadon Schultz MD on 04/30/2021 1:01 PM PDT Station ID: [id number]
== END 2021-04-30 10:43 | disposition home or self-care (01) ==
LOC: DI 10:42
PROVIDERS: ATTEND Internal Medicine
DX: M43.16 Spondylolisthesis, lumbar region (principal); M47.816 Spondylosis without myelopathy or radiculopathy, lumbar region; M51.36 Other intervertebral disc degeneration, lumbar region; M19.09 Primary osteoarthritis, other specified site

== ENCOUNTER 2021-05-12 12:58 | Outpatient (CLI) | payer MEDICARE, BC | END 2021-05-12 12:59 | disposition home or self-care (01) | LOC: LAB 12:58 | PROVIDERS: ATTEND Pharmacist | DX: I48.0 Paroxysmal atrial fibrillation (principal) | CPT/HCPCS: 36416; 85610 ==

== ENCOUNTER 2021-05-26 09:45 | Outpatient (CLI) | payer MEDICARE, BC | END 2021-05-26 09:46 | disposition home or self-care (01) | LOC: LAB 09:45 | PROVIDERS: ATTEND Pharmacist | DX: I48.0 Paroxysmal atrial fibrillation (principal) | CPT/HCPCS: 85610 ==

== ENCOUNTER 2021-06-14 12:44 | Outpatient (CLI) | payer MEDICARE, BC | END 2021-06-14 12:45 | disposition home or self-care (01) | LOC: LAB 12:44 | PROVIDERS: ATTEND Pharmacist | DX: I48.0 Paroxysmal atrial fibrillation (principal) | CPT/HCPCS: 36416; 85610 ==

== ENCOUNTER 2021-07-22 09:49 | Emergency (ER) | payer MEDICARE, BC ==
[2021-07-22 10:57] LABS: BASOPHILS # (AUTO) 0.1 10^3/uL (0.0-0.1); BASOPHILS % (AUTO) 1.3 %; EOSINOPHILS # (AUTO) 0.1 10^3/uL (0.0-0.7); EOSINOPHILS % (AUTO) 1.5 %; HCT - HEMATOCRIT 43.3 % (37.0-47.0); HGB - HEMOGLOBIN 14.4 g/dL (12.0-16.0); LYMPHOCYTES # (AUTO) 1.9 10^3/uL (1.5-3.5); LYMPHOCYTES % (AUTO) 24.5 %; MEAN CORPUSCULAR HEMOGLOBIN 31.6 pg (27.0-31.0); MEAN CORPUSCULAR HGB CONC 33.3 g/dL (32.0-36.0); MEAN CORPUSCULAR VOLUME 95.2 fL (81.0-99.0); MEAN PLATELET VOLUME 10.4 fL (7.9-10.8); MONOCYTES # (AUTO) 0.6 10^3/uL (0.0-1.0); NEUTROPHILS # (AUTO) 5.1 10^3/uL (1.5-6.6); NEUTROPHILS % (AUTO) 64.4 %; PLT - PLATELET COUNT 354 10^3/uL (130-450); RED BLOOD COUNT 4.55 10^6/uL (4.20-5.40); RED CELL DISTRIBUTION WIDTH 13.7 % (12.0-15.0); WHITE BLOOD COUNT 7.9 x10^3/uL (4.8-10.8)
--- NOTE | 2021-07-22 11:00 | XRAY Report ---
PROCEDURE: Chest 1 View X-Ray INDICATIONS: Chest pain TECHNIQUE: One view of the chest was acquired. COMPARISON: April 03, 2021 FINDINGS: SUPPORT DEVICES: Redemonstrated left cardiac device. LUNG/PLEURA: No focal consolidation or pulmonary edema. No pleural effusion or space-occupying pneumo thorax. MEDIASTINUM: The cardiomediastinal silhouette is within normal limits. BONES/SOFT TISSUES: No acute abnormality. IMPRESSION: 1.No acute cardiopulmonary abnormality. Reviewed by: Guillermo Palafox MD on 07/22/2021 10:58 AM PDT Approved by: Guillermo Palafox MD on 07/22/2021 10:58 AM PDT Station ID: [id number]
[2021-07-22 11:11] LABS: ALBUMIN/GLOBULIN RATIO 2.1 (1.0-2.2); BILIRUBIN,TOTAL 0.6 mg/dL (0.2-1.0); CREATININE 0.5 mg/dL (0.4-1.0); POTASSIUM 4.1 mmol/L (3.5-5.0); TOTAL PROTEIN 7.4 g/dL (6.7-8.2)
--- NOTE | 2021-07-22 11:28 | ED Physician Documentation ---
PD HPI DYSPNEA - Stated complaint Stated Complaint: SOA/IRREGULAR HEARTBEAT - Chief complaint Chief Complaint: Cardiac - History obtained from History obtained from: Patient - History of Present Illness Timing - onset: Enter time (2099), Last night Timing - onset during: Rest Timing - duration: Hours Timing - details: Abrupt onset, Now resolved Inciting event(s): Other (no specific event) Worsened by: Exertion Associated symptoms: Other (urination and excess stool this morning) Similar symptoms before: Diagnosis (afib with RVR) Recently seen: Not recently seen - Additional information Additional information: 70-year-old female with history of atrial fibrillation with rapid ventricular response has developed another episode last night of rapid ventricular response and she was dyspneic with this she was able to push her button for her monitor to capture the event. This morning she was up to the bathroom quite a bit both urination and defecation and she feels improved now. She arrives to the emergency department in sinus rhythm. Review of Systems Constitutional: reports: Chills. denies: Fever Eyes: denies: Decreased vision Ears: denies: Ear pain Nose: denies: Rhinorrhea / runny nose, Congestion Throat: denies: Sore throat Cardiac: reports: Chest pain / pressure, Palpitations. denies: Pedal edema, Calf pain Respiratory: reports: Dyspnea. denies: Cough, Wheezing GI: denies: Abdominal Pain, Nausea, Vomiting, Constipation, Diarrhea : reports: Frequency. 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 : None HEENT: None Psych: None Musculoskeletal: Osteoarthritis, Chronic back pain, Other Derm: None - Past Surgical History Past Surgical History: Yes General: Cholecystectomy HEENT: Tonsil/Adenoidectomy - Present Medications Home Medications: Ambulatory Orders Medication Instructions Recorded Confirmed Ipratropium/Albuterol Inhaler 2 puffs INH 3-4XD PRN 10/21/13 07/14/21 [Combivent Inhaler] diltiaZEM CD [Cardizem Cd] 180 mg PO DAILY 12/04/19 07/14/21 Warfarin [Coumadin] 3 mg PO DAILY 05/27/20 07/14/21 Acetaminophen [Tylenol Extra 500 mg PO Q6HR PRN 07/27/20 07/14/21 Strength] Fluticasone 44 Mcg [Flovent] 2 puffs PO BID 07/27/20 07/14/21 Magnesium Oxide [Mag Ox] 1 tab PO BID 07/27/20 07/14/21 Nicotine Polacrilex [Nicotine 1 tab PO DAILY PRN 07/27/20 07/14/21 Lozenge] Potassium Chloride [Klor-Con M20] 1 tab PO DAILY 07/27/20 07/14/21 Simethicone [Gas-X] 1 tab PO TID PRN 07/27/20 07/14/21 Umeclidinium Brm/Vilanterol Tr 1 puffs PO DAILY 07/27/20 07/14/21 [Anoro Ellipta 62.5-25 Mcg INH] polyethylene glycoL 3350 [Miralax] 1 pkg PO DAILY 07/27/20 07/14/21 Albuterol Sulfate [Proair 90 mcg INH PRN PRN 11/11/20 07/14/21 Respiclick] Diazepam [Valium] 25 mg PO PRN PRN 11/11/20 07/14/21 Dofetilide [Tikosyn] 250 mcg PO BID 11/11/20 07/14/21 - Allergies Allergies/Adverse Reactions: Allergies Allergy/AdvReac Type Severity Reaction Status Date / Time iodine Allergy Unknown unk Verified 07/22/21 10:24 Sulfa (Sulfonamide Allergy Unknown unk Verified 07/22/21 10:24 Antibiotics) Cephalosporins Allergy Unknown Verified 07/22/21 10:24 codeine Allergy Unknown Verified 07/22/21 10:24 doxycycline Allergy Unknown Verified 07/22/21 10:24 ibuprofen Allergy Unknown Verified 07/22/21 10:24 NSAIDS (Non-Steroidal Allergy Unknown Verified 07/22/21 10:24 Anti-Inflamma Penicillins Allergy unk Verified 07/22/21 10:24 shellfish derived Allergy Unknown Verified 07/22/21 10:24 mycins Allergy Unknown Uncoded 07/22/21 10:24 - Social History Does the pt smoke?: Yes Smoking Status: Current every day smoker Does the pt drink ETOH?: No Does the pt have substance abuse?: No - Immunizations Immunizations are current?: Yes Immunizations: TDAP current <10years - POLST Patient has POLST: No PD ED PE NORMAL - Vitals Vital signs reviewed: Yes (tachy) - General General: Alert and 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, No acute distress, Well developed/nourished - HEENT HEENT: Atraumatic, PERRL, EOMI - Neck Neck: Supple, no meningeal sign, No bony TTP - Cardiac Cardiac: RRR, No murmur - Respiratory Respiratory: No respiratory distress, Clear bilaterally - Abdomen Abdomen: Normal bowel sounds, Soft, Non tender, Non distended, No organomegaly - Back Back: No CVA TTP - Derm Derm: Normal color, Warm and dry, No rash - Extremities Extremities: No deformity, No edema - Neuro Neuro: Alert and 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, 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, No motor deficit, No sensory deficit, Normal speech Eye Opening: Spontaneous Motor: Obeys Commands Verbal: Oriented GCS Score: 15 - Psych Psych: Normal mood, Normal affect Results - Vitals Vitals: Vital Signs - 24 hr 07/22/21 07/22/21 07/22/21 10:18 10:52 13:12 Temperature 36.9 C 36.7 C Heart Rate 102 H 76 66 Respiratory 16 19 14 Rate Blood Pressure 111/68 98/77 O2 Saturation 94 96 94 Oxygen O2 Source Room air - EKG (time done) 1038 Rate: Rate (enter#) (68) Ischemia: Normal ST segments, Q waves Computer interpretation: Agree with computer - Labs Labs: Laboratory Tests 07/22/21 07/22/21 07/22/21 10:48 10:48 10:48 WBC 7.9 RBC 4.55 Hgb 14.4 Hct 43.3 MCV 95.2 MCH 31.6 H MCHC 33.3 RDW 13.7 Plt Count 354 MPV 10.4 Neut # (Auto) 5.1 Lymph # (Auto) 1.9 [place] # (Auto) 0.6 Eos # (Auto) 0.1 Baso # (Auto) 0.1 Absolute Nucleated RBC 0.00 Nucleated RBC % 0.0 PT INR Sodium 140 Potassium 4.1 Chloride 103 Carbon Dioxide 26 Anion Gap 11.0 BUN 10 Creatinine 0.5 Estimated GFR (MDRD) 121 Glucose 109 H Calcium 10.0 Total Bilirubin 0.6 AST 19 ALT 17 Alkaline Phosphatase 72 Troponin I High Sens 8.0 Total Protein 7.4 Albumin 5.0 Globulin 2.4 Albumin/Globulin Ratio 2.1 Lipase 29 Urine Color Urine Clarity Urine pH Ur Specific [place] Urine Protein Urine Glucose (UA) Urine Ketones Urine Occult Blood Urine Nitrite Urine Bilirubin Urine Urobilinogen Ur Leukocyte Esterase Ur Microscopic Review Urine Culture Comments 07/22/21 07/22/21 12:03 12:50 WBC RBC Hgb Hct MCV MCH MCHC RDW Plt Count MPV Neut # (Auto) Lymph # (Auto) [place] # (Auto) Eos # (Auto) Baso # (Auto) Absolute Nucleated RBC Nucleated RBC % PT 29.6 H INR 2.7 H Sodium Potassium Chloride Carbon Dioxide Anion Gap BUN Creatinine Estimated GFR (MDRD) Glucose Calcium Total Bilirubin AST ALT Alkaline Phosphatase Troponin I High Sens Total Protein Albumin Globulin Albumin/Globulin Ratio Lipase Urine Color DARK YELLOW Urine Clarity CLEAR Urine pH 7.0 Ur Specific [place] 1.015 Urine Protein NEGATIVE Urine Glucose (UA) NEGATIVE Urine Ketones NEGATIVE Urine Occult Blood NEGATIVE Urine Nitrite NEGATIVE Urine Bilirubin NEGATIVE Urine Urobilinogen 0.2 (NORMAL) Ur Leukocyte Esterase NEGATIVE Ur Microscopic Review NOT INDICATED Urine Culture Comments NOT INDICATED - Rads (name of study) chest Radiology: Prelim report reviewed (Impression: 1. No acute cardiopulmonary abnormality.), EMP read indepedently, See rad report Procedures - IVC sono (time) 1150 Bedside IVC sono: IVC measures (cm) (1.76) PD MEDICAL DECISION MAKING - ED course Complexity details: reviewed results, re-evaluated patient, considered differential, d/w patient ED course: 70-year-old female with a history of paroxysmal atrial fibrillation has developed another episode of A. fib with RVR that has now resolved. She has no residual evidence of rapid rate. 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 Departure - Departure Disposition: 01 Home, Self Care Clinical Impression: Paroxysmal atrial fibrillation Condition: Stable Instructions: ED Paroxysmal Atrial Flutter Follow-Up: Shalini Oliveira MD [Primary Care Provider] - Discharge Date/Time: 07/22/21 13:28
[2021-07-22 12:17] LABS: INR 2.7 (0.8-1.2); PT - PROTHROMBIN TIME 29.6 secs (9.9-12.6)
[2021-07-22 12:59] LABS: BILIRUBIN,URINE NEGATIVE (NEGATIVE); GLUCOSE, URINE (UA) NEGATIVE (NEGATIVE); KETONES,URINE (UA) NEGATIVE (NEGATIVE); LEUKOCYTE ESTERASE, URINE NEGATIVE (NEGATIVE); NITRITE,URINE NEGATIVE (NEGATIVE); OCCULT BLOOD,URINE NEGATIVE (NEGATIVE); PROTEIN,URINE NEGATIVE (NEGATIVE); UROBILINOGEN,URINE 0.2 (NORMAL) E.U./dL (NORMAL)
[2021-07-22 13:01] LABS: CLARITY,URINE CLEAR (CLEAR)
[2021-07-22 13:13] VITALS: BP 98/77
== END 2021-07-22 13:28 | disposition home or self-care (01) ==
LOC: ED 09:49
DX: I48.0 Paroxysmal atrial fibrillation (principal); Z79.01 Long term (current) use of anticoagulants; F17.200 Nicotine dependence, unspecified, uncomplicated
CPT/HCPCS: 36415; 80053; 81001; 81003; 83690; 84484; 85025; 85610; 87086; 93005; 99284

== ENCOUNTER 2021-08-04 11:36 | Outpatient (CLI) | payer MEDICARE, BC | END 2021-08-04 11:37 | disposition home or self-care (01) | LOC: LAB 11:36 | PROVIDERS: ATTEND Pharmacist | DX: I48.0 Paroxysmal atrial fibrillation (principal) | CPT/HCPCS: 36416; 85610 ==

== ENCOUNTER 2021-09-06 12:51 | Outpatient (CLI) | payer MEDICARE, BC ==
--- NOTE | 2021-09-06 16:47 | DEXA Report ---
PROCEDURE: Dexa Spine and/or Hip INDICATIONS: POST MENOPAUSAL TECHNIQUE: Dual energy x-ray absorptiometry (DXA) was performed on a [employer] System. Regions measur ed are the AP Spine, femoral neck, and if needed forearm. COMPARISON: None. FINDINGS: Lumbar Spine: Bone Mineral Density 1.0 g/cm/cm,T score -1.1, borderline osteopenia Left Hip: Bone Mineral Density 0.75 g/cm/cm,T score -2.1, osteopenia Impression: Osteopenia of the lumbar spine and left hip. Patients with diagnosis of osteoporosis or osteopenia should have regular bone mineral density assess ment. For those eligible for Medicare, routine testing is allowed once every 2 years. Testing frequ ency can be increased for patients who have rapidly progressing disease or for those who are receivin g medical therapy to restore bone mass. Reviewed by: William Young MD on 09/06/2021 4:45 PM PST Approved by: William Young MD on 09/06/2021 4:45 PM PST Station ID: [id number]
== END 2021-09-06 12:52 | disposition home or self-care (01) ==
LOC: DI 12:51
PROVIDERS: ATTEND Internal Medicine
DX: Z78.0 Asymptomatic menopausal state (principal); M85.89 Other specified disorders of bone density and structure, multiple sites

== ENCOUNTER 2021-11-17 12:06 | Outpatient (CLI) | payer MEDICARE, BC | END 2021-11-17 12:07 | disposition home or self-care (01) | LOC: LAB 12:06 | PROVIDERS: ATTEND Pharmacist | DX: I48.0 Paroxysmal atrial fibrillation (principal) | CPT/HCPCS: 36416; 85610 ==

== ENCOUNTER 2021-12-08 11:04 | Outpatient (CLI) | payer MEDICARE, BC | END 2021-12-08 11:05 | disposition home or self-care (01) | LOC: LAB 11:04 | PROVIDERS: ATTEND Pharmacist | DX: I48.0 Paroxysmal atrial fibrillation (principal) | CPT/HCPCS: 36416; 85610 ==

== ENCOUNTER 2022-03-02 09:15 | Outpatient (CLI) | payer MEDICARE, BC | END 2022-03-02 09:16 | disposition home or self-care (01) | LOC: LAB 09:15 | PROVIDERS: ATTEND Pharmacist | DX: I48.0 Paroxysmal atrial fibrillation (principal) | CPT/HCPCS: 36416; 85610 ==

== ENCOUNTER 2022-03-30 11:51 | Outpatient (CLI) | payer MEDICARE, BC | END 2022-03-30 11:52 | disposition home or self-care (01) | LOC: LAB 11:51 | PROVIDERS: ATTEND Pharmacist | DX: I48.0 Paroxysmal atrial fibrillation (principal) | CPT/HCPCS: 36416; 85610 ==

== ENCOUNTER 2022-06-15 14:00 | Outpatient (CLI) | payer MEDICARE, BC | END 2022-06-15 14:01 | disposition home or self-care (01) | LOC: LAB 14:00 | PROVIDERS: ATTEND Pharmacist | DX: I48.0 Paroxysmal atrial fibrillation (principal) | CPT/HCPCS: 36416; 85610 ==

== ENCOUNTER 2022-06-21 10:43 | Outpatient (CLI) | payer MEDICARE, BC | END 2022-06-21 10:44 | disposition home or self-care (01) | LOC: LAB 10:43 | PROVIDERS: ATTEND Pharmacist | DX: I48.0 Paroxysmal atrial fibrillation (principal) | CPT/HCPCS: 36416; 85610 ==

== ENCOUNTER 2022-07-08 12:47 | Outpatient (CLI) | payer MEDICARE, BC | END 2022-07-08 12:48 | disposition home or self-care (01) | LOC: LAB 12:47 | PROVIDERS: ATTEND Pharmacist | DX: I48.0 Paroxysmal atrial fibrillation (principal) | CPT/HCPCS: 36416; 85610 ==

== ENCOUNTER 2022-07-14 14:26 | Outpatient (CLI) | payer MEDICARE, BC | END 2022-07-14 14:27 | disposition home or self-care (01) | LOC: LAB 14:26 | PROVIDERS: ATTEND Pharmacist | DX: I48.0 Paroxysmal atrial fibrillation (principal) | CPT/HCPCS: 36416; 85610 ==

== ENCOUNTER 2022-07-16 10:17 | Emergency (ER) | payer MEDICARE, BC ==
[2022-07-16] MEDS ORDERED: CHERRY SYRUP 10 ML UDC PO ONE (10:45)
[2022-07-16] MEDS ORDERED: DEXAMETHASONE 10 MG/ML VIAL PO STA (10:45)
[2022-07-16] MEDS ORDERED: oxyCODONE 5 MG TABLET PO STA (10:46)
[2022-07-16] MEDS ORDERED: LIDOCAINE PATCH 5% TOP STA (10:46)
--- NOTE | 2022-07-16 10:47 | ED Physician Documentation ---
PD HPI BACK PAIN - Stated complaint Stated Complaint: LOW BACK/HIP PAIN - Chief complaint Chief Complaint: Back Pain - History obtained from History obtained from: Patient - Additional information Additional information: Patient is a 71-year-old female with history of A. fib on Coumadin presenting for evaluation of left buttock pain that is been present since Monday radiating into her left leg. Patient has a history of sciatica which usually affects her right leg but this week it has been her left leg which has been affected. She denies any trauma or injury or increased activity. She has tried Tylenol and ice and heat with only minimal improvement. Patient reports having a cardiac ablation for A. fib several weeks ago. Her INR was checked 2 days ago and was 2.6. She denies any bruising.Nothing makes her pain better and it is worse with certain movements. She denies bowel or bladder incontinence, saddle anesthesia, fevers, known malignancy. She has been able to ambulate. Review of Systems Constitutional: denies: Fever Nose: denies: Congestion Cardiac: denies: Chest pain / pressure Respiratory: denies: Dyspnea, Cough GI: denies: Abdominal Pain, Vomiting Musculoskeletal: reports: Extremity pain (Left buttock pain). 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 : None HEENT: None Psych: None Musculoskeletal: Osteoarthritis, Chronic back pain, Other Derm: None - Past Surgical History Past Surgical History: Yes General: Cholecystectomy HEENT: Tonsil/Adenoidectomy - Present Medications Home Medications: Ambulatory Orders Medication Instructions Recorded Confirmed Ipratropium/Albuterol Inhaler 2 puffs INH 3-4XD PRN 10/21/13 06/01/22 [Combivent Inhaler] diltiaZEM CD [Cardizem Cd] 180 mg PO BID 12/04/19 06/01/22 Warfarin [Coumadin] 7 mg PO DAILY 05/27/20 06/01/22 Fluticasone 44 Mcg [Flovent] 2 puffs PO BID 07/27/20 06/01/22 Magnesium Oxide [Mag Ox] 1 tab PO BID 07/27/20 06/01/22 Nicotine Polacrilex [Nicotine 1 tab PO DAILY PRN 07/27/20 06/01/22 Lozenge] Potassium Chloride [Klor-Con M20] 1 tab PO DAILY 07/27/20 06/01/22 Simethicone [Gas-X] 1 tab PO TID PRN 07/27/20 06/01/22 Umeclidinium Brm/Vilanterol Tr 1 puffs PO DAILY 07/27/20 06/01/22 [Anoro Ellipta 62.5-25 Mcg INH] polyethylene glycoL 3350 [Miralax] 1 pkg PO DAILY 07/27/20 06/01/22 Albuterol Sulfate [Proair 90 mcg INH PRN PRN 11/11/20 06/01/22 Respiclick] Diazepam [Valium] 25 mg PO PRN PRN 11/11/20 06/01/22 Dofetilide [Tikosyn] 250 mcg PO BID 11/11/20 06/01/22 Acetaminophen [Tylenol] 650 mg PO Q8HR PRN 09/08/21 06/01/22 Lidocaine Patch 5% [Lidoderm Patch] 1 patch TOP DAILY PRN #10 patch 07/16/22 Oxycodone HCl/Acetaminophen 1 each PO Q6H PRN #14 tablet 07/16/22 [Percocet 5-325 mg Tablet] methocarbamoL [Robaxin] 500 mg PO Q8H PRN #12 tablet 07/16/22 - Allergies Allergies/Adverse Reactions: Allergies Allergy/AdvReac Type Severity Reaction Status Date / Time iodine Allergy Unknown unk Verified 03/30/22 13:46 Sulfa (Sulfonamide Allergy Unknown unk Verified 03/30/22 13:46 Antibiotics) Cephalosporins Allergy Unknown Verified 03/30/22 13:46 codeine Allergy Unknown Verified 03/30/22 13:46 doxycycline Allergy Unknown Verified 03/30/22 13:46 ibuprofen Allergy Unknown Verified 03/30/22 13:46 NSAIDS (Non-Steroidal Allergy Unknown Verified 03/30/22 13:46 Anti-Inflamma Penicillins Allergy unk Verified 03/30/22 13:46 shellfish derived Allergy Unknown Verified 03/30/22 13:46 mycins Allergy Unknown Uncoded 03/30/22 13:46 - Social History Does the pt smoke?: Yes Smoking Status: Current every day smoker Does the pt drink ETOH?: No Does the pt have substance abuse?: No - Immunizations Immunizations are current?: Yes Immunizations: TDAP current <10years - POLST Patient has POLST: No PD ED PE NORMAL - General General: Alert and 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, No acute distress, Well developed/nourished - HEENT HEENT: Atraumatic - Neck Neck: Supple, no meningeal sign, No bony TTP - Cardiac Cardiac: RRR, Strong equal pulses - Respiratory Respiratory: No respiratory distress, Clear bilaterally - Abdomen Abdomen: Soft, Non tender, Non distended - Back Back: No spinal TTP, Other (Left buttock tenderness) - Derm Derm: Warm and dry - Extremities Extremities: Other (No tenderness to the left hip/knee/ankle; Pedal pulses intact, sensation grossly intact, No swelling, able to raise leg off bed) - Neuro Neuro: No motor deficit, No sensory deficit Results - Vitals Vitals: Vital Signs - 24 hr 07/16/22 07/16/22 10:27 12:13 Temperature 37.1 C Heart Rate 87 64 Respiratory 20 16 Rate Blood Pressure 138/73 H 105/53 L O2 Saturation 95 92 Oxygen O2 Source Room air Departure - Departure Disposition: Home, Self Care Clinical Impression: Sciatica Qualifiers: Laterality: left Qualified Code(s): M54.32 - Sciatica, left side Condition: Stable Instructions: ED Sciatica Prescriptions: Lidocaine Patch 5% [Lidoderm Patch] 1 patch TOP DAILY PRN #10 patch PRN Reason: pain Oxycodone HCl/Acetaminophen [Percocet 5-325 mg Tablet] 1 each PO Q6H PRN #14 tablet PRN Reason: pain methocarbamoL [Robaxin] 500 mg PO Q8H PRN #12 tablet PRN Reason: spasm Comments: You were evaluated for sciatica pain. I have given you a dose of a steroid which is long-acting and should continue to work for the next several days. We have also started you on lidocaine patches as well as pain medication. I have sent prescriptions to [facility] in [place]. I have also sent a prescription for muscle relaxers to see if this helps you better than the pain medication. I would recommend on not combining the pain medicine with the muscle relaxer as it may cause you to be overly sedated. I am prescribing a short course of narcotic pain medication for you. These are potentially dangerous and addictive medications that should be used carefully. These medications may constipate you. Take an [id number] stool softener (docusate) twice daily with plenty of water while taking these medications. If you go 24 hours without a bowel movement, take [id number] miralax, per package instructions. Do not drink or drive while taking these medications. If you received narcotic or sedating medications while in the emergency department, do not drive for 24 hours. Store this medication in a safe, secure place and out of reach of children. It is a violation of federal law to give or sell this medication to another person or to use in a manner other than prescribed. The ED will not refill narcotic prescriptions, including prescriptions lost or stolen. To dispose of unwanted medications: 1. [facility] at [address] [facility] in [place] has a medication drop box. They accept prescription medications (in pill form) Monday through Monday 9:00 a.m. to 5:00 p.m. 2. The [facility] accepts prescription medications (in pill form only) for disposal year round. Call for more information. 3. Contact the [facility] for the next [facility] sponsored prescription drug collection event. , [phone], or [phone]; Note that many narcotic pain relievers also contain Tylenol/acetaminophen. Please ensure that your total dose of acetaminophen from all sources does not exceed 3 g (3000 mg) per day. Please call your primary care doctor on Monday for close follow-up. If you have any worsening symptoms such as increased pain, bruising, weakness, trouble with bowel or bladder function or any other concerns please return to the emergency department. Discharge Date/Time: 07/16/22 12:31
[2022-07-16 12:14] VITALS: BP 105/53
== END 2022-07-16 12:31 | disposition home or self-care (01) ==
LOC: ED 10:17
DX: M54.32 Sciatica, left side (principal); I48.91 Unspecified atrial fibrillation; Z79.01 Long term (current) use of anticoagulants; F17.200 Nicotine dependence, unspecified, uncomplicated
CPT/HCPCS: 99282; 99283; A9270

== ENCOUNTER 2022-07-21 12:43 | Outpatient (CLI) | payer MEDICARE, BC | END 2022-07-21 12:44 | disposition home or self-care (01) | LOC: LAB 12:43 | PROVIDERS: ATTEND Pharmacist | DX: I48.0 Paroxysmal atrial fibrillation (principal) | CPT/HCPCS: 36416; 85610 ==

== ENCOUNTER 2022-08-10 11:55 | Outpatient (CLI) | payer MEDICARE, BC ==
[2022-08-10 12:29] LABS: CALCIUM 9.8 mg/dL (8.5-10.3); CREATININE 0.5 mg/dL (0.4-1.0); POTASSIUM 3.8 mmol/L (3.5-5.0)
== END 2022-08-10 11:56 | disposition home or self-care (01) ==
LOC: LAB 11:55
PROVIDERS: ATTEND Nurse Practitioner Family
DX: I48.0 Paroxysmal atrial fibrillation (principal); Z51.81 Encounter for therapeutic drug level monitoring; Z79.899 Other long term (current) drug therapy
CPT/HCPCS: 36415; 80048; 83880; 85610

== ENCOUNTER 2022-09-07 12:18 | Outpatient (CLI) | payer MEDICARE, BC ==
[2022-09-07 13:15] LABS: PT - PROTHROMBIN TIME 21.4 secs (9.9-12.6)
== END 2022-09-07 12:19 | disposition home or self-care (01) ==
LOC: LAB 12:18
PROVIDERS: ATTEND Pharmacist
DX: I48.0 Paroxysmal atrial fibrillation (principal)
CPT/HCPCS: 36415; 85610

== ENCOUNTER 2022-10-19 12:03 | Outpatient (CLI) | payer MEDICARE, BC | END 2022-10-19 12:04 | disposition home or self-care (01) | LOC: LAB 12:03 | PROVIDERS: ATTEND Pharmacist | DX: I48.0 Paroxysmal atrial fibrillation (principal) | CPT/HCPCS: 36416; 85610 ==

== ENCOUNTER 2022-11-17 13:58 | Outpatient (CLI) | payer MEDICARE, BC | END 2022-11-17 13:59 | disposition home or self-care (01) | LOC: LAB 13:58 | PROVIDERS: ATTEND Pharmacist | DX: I48.0 Paroxysmal atrial fibrillation (principal) | CPT/HCPCS: 36416; 85610 ==

== ENCOUNTER 2022-11-30 11:19 | Outpatient (CLI) | payer MEDICARE, BC ==
[2022-11-30 11:46] LABS: INR 1.8 (0.8-1.2); PT - PROTHROMBIN TIME 19.2 secs (9.9-12.6)
== END 2022-11-30 11:20 | disposition home or self-care (01) ==
LOC: LAB 11:19
PROVIDERS: ATTEND Pharmacist
DX: I48.0 Paroxysmal atrial fibrillation (principal)
CPT/HCPCS: 36415; 36416; 85610

== ENCOUNTER 2023-01-12 13:32 | Outpatient (CLI) | payer MEDICARE, BC | END 2023-01-12 13:33 | disposition home or self-care (01) | LOC: LAB 13:32 | PROVIDERS: ATTEND Pharmacist | DX: I48.0 Paroxysmal atrial fibrillation (principal) | CPT/HCPCS: 36416; 85610 ==

== ENCOUNTER 2023-01-27 12:14 | Outpatient (CLI) | payer MEDICARE, BC | END 2023-01-27 12:15 | disposition home or self-care (01) | LOC: LAB 12:14 | PROVIDERS: ATTEND Pharmacist | DX: I48.0 Paroxysmal atrial fibrillation (principal) | CPT/HCPCS: 36416; 85610 ==

== ENCOUNTER 2023-02-10 15:11 | Outpatient (CLI) | payer MEDICARE, BC | END 2023-02-10 15:12 | disposition home or self-care (01) | LOC: LAB 15:11 | PROVIDERS: ATTEND Pharmacist | DX: I48.0 Paroxysmal atrial fibrillation (principal) | CPT/HCPCS: 36416; 85610 ==

== ENCOUNTER 2023-03-01 10:57 | Outpatient (CLI) | payer MEDICARE, BC | END 2023-03-01 10:58 | disposition home or self-care (01) | LOC: LAB 10:57 | PROVIDERS: ATTEND Pharmacist | DX: I48.0 Paroxysmal atrial fibrillation (principal) | CPT/HCPCS: 36416; 85610 ==

== ENCOUNTER 2023-03-17 14:22 | Outpatient (CLI) | payer MEDICARE, BC | END 2023-03-17 14:23 | disposition home or self-care (01) | LOC: LAB 14:22 | PROVIDERS: ATTEND Pharmacist | DX: I48.0 Paroxysmal atrial fibrillation (principal) | CPT/HCPCS: 36416; 85610 ==

== ENCOUNTER 2023-05-03 12:25 | Outpatient (CLI) | payer MEDICARE, BC | END 2023-05-03 12:26 | disposition home or self-care (01) | LOC: LAB 12:25 | PROVIDERS: ATTEND Pharmacist | DX: I48.0 Paroxysmal atrial fibrillation (principal) | CPT/HCPCS: 85610 ==

== ENCOUNTER 2023-05-07 07:43 | Outpatient (CLI) | payer MEDICARE, BC | END 2023-05-07 23:59 | disposition critical access hospital (66) | LOC: EMS 07:43 | DX: K59.00 Constipation, unspecified (principal); R10.30 Lower abdominal pain, unspecified; M54.50 Low back pain, unspecified | CPT/HCPCS: A0425; A0429 ==

== ENCOUNTER 2023-05-07 07:51 | Emergency (ER) | payer MEDICARE, BC ==
[2023-05-07 08:37] LABS: BASOPHILS % (AUTO) 0.4 %; EOSINOPHILS # (AUTO) 0.1 10^3/uL (0.0-0.7); EOSINOPHILS % (AUTO) 1.1 %; HCT - HEMATOCRIT 46.1 % (37.0-47.0); HGB - HEMOGLOBIN 14.8 g/dL (12.0-16.0); LYMPHOCYTES # (AUTO) 1.3 10^3/uL (1.5-3.5); LYMPHOCYTES % (AUTO) 14.2 %; MEAN CORPUSCULAR HEMOGLOBIN 30.7 pg (27.0-31.0); MEAN CORPUSCULAR HGB CONC 32.1 g/dL (32.0-36.0); MEAN CORPUSCULAR VOLUME 95.6 fL (81.0-99.0); MONOCYTES % (AUTO) 10.5 %; NEUTROPHILS # (AUTO) 6.6 10^3/uL (1.5-6.6); NEUTROPHILS % (AUTO) 72.9 %; PLT - PLATELET COUNT 401 10^3/uL (130-450); RED BLOOD COUNT 4.82 10^6/uL (4.20-5.40); RED CELL DISTRIBUTION WIDTH 14.1 % (12.0-15.0)
[2023-05-07 08:43] LABS: INR 3.3 (0.8-1.2)
[2023-05-07] MEDS ORDERED: SOAP SUDS ENEMA 1 EACH RC ONE (08:44)
[2023-05-07] MEDS ORDERED: IPRATROPIUM/ALBUTEROL 3 ML NEB INH STA (08:49)
[2023-05-07 08:51] LABS: ALBUMIN 4.6 g/dL (3.2-5.5); ALBUMIN/GLOBULIN RATIO 1.5 (1.0-2.2); BILIRUBIN,TOTAL 0.7 mg/dL (0.2-1.0); CALCIUM 10.3 mg/dL (8.5-10.3); CREATININE 0.4 mg/dL (0.4-1.0); TOTAL PROTEIN 7.7 g/dL (6.7-8.2)
--- NOTE | 2023-05-07 09:11 | XRAY Report ---
PROCEDURE: Chest 1 View X-Ray INDICATIONS: SOA TECHNIQUE: One view of the chest was acquired. COMPARISON: None. FINDINGS: Surgical changes and devices: None. Lungs and pleura: No pleural effusions or pneumothorax. Lungs are clear. Mediastinum: Mediastinal contours appear normal. Heart size is normal. Bones and chest wall: No suspicious bony lesions. Overlying soft tissues appear unremarkable. IMPRESSION: No acute cardiopulmonary process. Reviewed by: Jonel Lyons on 05/07/2023 9:10 AM PDT Approved by: Jonel Lyons on 05/07/2023 9:10 AM PDT Station ID: [id number]
--- NOTE | 2023-05-07 11:48 | ED Physician Documentation ---
History of Present Illness - Stated complaint Stated Complaint: AB PX - Chief complaint Chief Complaint: Abd Pain - History obtained from History obtained from: Patient - Additonal information Additional information: Patient is a 72-year-old female with a history of sciatica, COPD, atrial fibrillation on warfarin presenting for evaluation of constipation. Patient reports that she has been on oxycodone recently for sciatica flare and feels that she is constipated. She was able to have a bowel movement yesterday but still feels stool in the rectum. She was recently seen here for leg swelling. She states her breathing feels normal for her.She denies abdominal pain, vomiting, blood in stools. She states that it hurts her sciatica to bear down for a bowel movement.She has used glycerin suppositories with some improvement at home as well as stool softeners and MiraLAX. Review of Systems Constitutional: denies: Fever Cardiac: denies: Chest pain / pressure Respiratory: denies: Dyspnea GI: reports: Constipation. 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 HEENT: None Psych: None Musculoskeletal: Osteoarthritis, Chronic back pain, Other Derm: None - Past Surgical History Past Surgical History: Yes General: Cholecystectomy HEENT: Tonsil/Adenoidectomy - Present Medications Home Medications: Ambulatory Orders Medication Instructions Recorded Confirmed Ipratropium/Albuterol Inhaler 2 puffs INH 3-4XD PRN 10/21/13 05/07/23 [Combivent Inhaler] diltiaZEM CD [Cardizem Cd] 180 mg PO BID 12/04/19 05/07/23 Warfarin [Coumadin] 7 mg PO DAILY 05/27/20 05/07/23 Fluticasone 44 Mcg [Flovent] 2 puffs PO BID 07/27/20 05/07/23 Magnesium Oxide [Mag Ox] 1 tab PO BID 07/27/20 05/07/23 Nicotine Polacrilex [Nicotine 1 tab PO DAILY PRN 07/27/20 05/07/23 Lozenge] Potassium Chloride [Klor-Con M20] 1 tab PO DAILY 07/27/20 05/07/23 Umeclidinium Brm/Vilanterol Tr 1 puffs PO DAILY 07/27/20 05/07/23 [Anoro Ellipta 62.5-25 Mcg INH] polyethylene glycoL 3350 [Miralax] 1 pkg PO PRN PRN 07/27/20 05/07/23 Albuterol Sulfate [Proair 90 mcg INH PRN PRN 11/11/20 05/07/23 Respiclick] Dofetilide [Tikosyn] 250 mcg PO BID 11/11/20 05/07/23 Acetaminophen [Tylenol] 650 mg PO Q8HR PRN 09/08/21 05/07/23 Furosemide [Lasix] 20 mg PO DAILY #3 tablet 05/03/23 05/07/23 - Allergies Allergies/Adverse Reactions: Allergies Allergy/AdvReac Type Severity Reaction Status Date / Time iodine Allergy Unknown unk Verified 05/07/23 08:04 Sulfa (Sulfonamide Allergy Unknown unk Verified 05/07/23 08:04 Antibiotics) Cephalosporins Allergy Unknown Verified 05/07/23 08:04 codeine Allergy Unknown Verified 05/07/23 08:04 doxycycline Allergy Unknown Verified 05/07/23 08:04 ibuprofen Allergy Unknown Verified 05/07/23 08:04 NSAIDS (Non-Steroidal Allergy Unknown Verified 05/07/23 08:04 Anti-Inflamma Penicillins Allergy unk Verified 05/07/23 08:04 shellfish derived Allergy Unknown Verified 05/07/23 08:04 mycins Allergy Unknown Uncoded 05/07/23 08:04 - Social History Does the pt smoke?: Yes Smoking Status: Current every day smoker Does the pt drink ETOH?: No Does the pt have substance abuse?: No - Immunizations Immunizations are current?: Yes Immunizations: TDAP current <10years - POLST Patient has POLST: No PD ED PE NORMAL - General General: Alert and 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, No acute distress, Other (Elderly, frail- appearing) - HEENT HEENT: Atraumatic, Moist mucous membranes, Pharynx benign - Neck Neck: Supple, no meningeal sign - Cardiac Cardiac: RRR - Respiratory Respiratory: No respiratory distress, Other (Mild expiratory wheezing bilaterally) - Abdomen Abdomen: Normal bowel sounds, Soft, Non tender, Non distended - Rectal Rectal: Other (Chaperoned by RN, stool in rectal vault) - Extremities Extremities: Other (Bilateral lower extremity edema) - Neuro Neuro: Normal speech Results - Vitals Vitals: Vital Signs - 24 hr 05/07/23 05/07/23 05/07/23 07:58 08:56 10:04 Temperature 37.2 C Heart Rate 95 84 87 Respiratory 22 18 20 Rate Blood Pressure 151/84 H 158/84 H O2 Saturation 91 L 93 05/07/23 12:00 Temperature Heart Rate 84 Respiratory 18 Rate Blood Pressure 148/79 H O2 Saturation 92 Oxygen O2 Source Room air - Labs Labs: Laboratory Tests 05/07/23 05/07/23 05/07/23 08:33 08:33 08:33 WBC 9.0 RBC 4.82 Hgb 14.8 Hct 46.1 MCV 95.6 MCH 30.7 MCHC 32.1 RDW 14.1 Plt Count 401 MPV 10.0 Neut # (Auto) 6.6 Lymph # (Auto) 1.3 L [place] # (Auto) 1.0 Eos # (Auto) 0.1 Baso # (Auto) 0.0 Absolute Nucleated RBC 0.00 Nucleated RBC % 0.0 PT 34.0 H INR 3.3 H Sodium 134 L Potassium 4.0 Chloride 95 L Carbon Dioxide 31 Anion Gap 8.0 BUN 13 Creatinine 0.4 Estimated GFR (MDRD) 156 Glucose 111 H Calcium 10.3 Total Bilirubin 0.7 AST 20 ALT 25 Alkaline Phosphatase 67 B-Natriuretic Peptide Total Protein 7.7 Albumin 4.6 Globulin 3.1 Albumin/Globulin Ratio 1.5 Lipase 34 05/07/23 08:33 WBC RBC Hgb Hct MCV MCH MCHC RDW Plt Count MPV Neut # (Auto) Lymph # (Auto) [place] # (Auto) Eos # (Auto) Baso # (Auto) Absolute Nucleated RBC Nucleated RBC % PT INR Sodium Potassium Chloride Carbon Dioxide Anion Gap BUN Creatinine Estimated GFR (MDRD) Glucose Calcium Total Bilirubin AST ALT Alkaline Phosphatase B-Natriuretic Peptide 37 Total Protein Albumin Globulin Albumin/Globulin Ratio Lipase PD Medical Decision Making - ED course Complexity details: reviewed results, re-evaluated patient, d/w patient ED course: Pt with constipation. Recently seen for leg swelling and on lasix for a few days. Appeared SOA on arrival so labs/chest XR done. Pt states this is her baseline COPD. Better after 1 neb. Recently finished course of prednisone and did not like how it made her feel. Has seen Cardiology this week and plan for echo next week. Chest XR which I reviewed is negative for pleural effusion or pneumonia. CBC, CMP, INR reviewed. INR supratherapeutic at 3.3. No signs of bleeding. Abdominal exam benign. Feeling better after enema. Instructed to hold warfarin for one dose. Advised on need for close follow up and return precautions. Departure - Departure Disposition: 01 Home, Self Care Clinical Impression: Constipation, Supratherapeutic INR Condition: Stable Instructions: ED Constipation Comments: You were treated for constipation and had significant improvement after an enema. Your labs were reviewed and your INR is slightly above your goal at 3.3. Therefore I would recommend holding today's dose of warfarin. Please resume your regular dosing tomorrow. Please have close follow-up for recheck of your INR and continue to have cardiology follow-up regarding swelling in your legs. Return to the ER with any worsening. Forms: PCP List Discharge Date/Time: 05/07/23 12:00
[2023-05-07 12:12] VITALS: BP 148/79
== END 2023-05-07 12:00 | disposition home or self-care (01) ==
LOC: ED 07:51
DX: K59.00 Constipation, unspecified (principal); R79.1 Abnormal coagulation profile; R06.02 Shortness of breath; I48.91 Unspecified atrial fibrillation; Z79.01 Long term (current) use of anticoagulants; J44.9 Chronic obstructive pulmonary disease, unspecified; R60.0 Localized edema; F17.200 Nicotine dependence, unspecified, uncomplicated
CPT/HCPCS: 36415; 71045; 80053; 83690; 83880; 85025; 85610; 94640; 99283; 99284; A9270

== ENCOUNTER 2023-05-19 12:08 | Outpatient (CLI) | payer MEDICARE, BC ==
[2023-05-19 12:27] LABS: MUDS CUTOFF CONCENTRATIONS CUTOFF CONC BELOW:
[2023-05-19 12:29] LABS: BASOPHILS # (AUTO) 0.1 10^3/uL (0.0-0.1); BASOPHILS % (AUTO) 0.7 %; EOSINOPHILS # (AUTO) 0.1 10^3/uL (0.0-0.7); EOSINOPHILS % (AUTO) 0.9 %; HCT - HEMATOCRIT 43.2 % (37.0-47.0); HGB - HEMOGLOBIN 14.1 g/dL (12.0-16.0); LYMPHOCYTES # (AUTO) 1.1 10^3/uL (1.5-3.5); LYMPHOCYTES % (AUTO) 15.5 %; MEAN CORPUSCULAR HEMOGLOBIN 31.9 pg (27.0-31.0); MEAN CORPUSCULAR HGB CONC 32.6 g/dL (32.0-36.0); MEAN CORPUSCULAR VOLUME 97.7 fL (81.0-99.0); MONOCYTES # (AUTO) 0.6 10^3/uL (0.0-1.0); MONOCYTES % (AUTO) 9.3 %; NEUTROPHILS % (AUTO) 73.3 %; PLT - PLATELET COUNT 333 10^3/uL (130-450); RED BLOOD COUNT 4.42 10^6/uL (4.20-5.40); RED CELL DISTRIBUTION WIDTH 14.8 % (12.0-15.0); WHITE BLOOD COUNT 6.8 x10^3/uL (4.8-10.8)
[2023-05-19 12:50] LABS: ALBUMIN 4.3 g/dL (3.2-5.5); ALBUMIN/GLOBULIN RATIO 1.6 (1.0-2.2); BILIRUBIN,TOTAL 0.3 mg/dL (0.2-1.0); CALCIUM 10.4 mg/dL (8.5-10.3); CREATININE 0.5 mg/dL (0.6-1.3); POTASSIUM 3.8 mmol/L (3.5-4.5)
[2023-05-19 13:05] LABS: AMPHETAMINE SCREEN,URINE NEGATIVE (NEGATIVE); BARBITURATE SCREEN,UR NEGATIVE (NEGATIVE); BENZODIAZEPINES SCREEN, URINE POSITIVE (NEGATIVE); COCAINE SCREEN URINE NEGATIVE (NEGATIVE); METHADONE SCREEN, URINE NEGATIVE (NEGATIVE); METHAMPHETAMINES SCREEN, URINE NEGATIVE (NEGATIVE); OPIATE SCREEN, URINE NEGATIVE (NEGATIVE); OXYCODONE SCREEN, URINE POSITIVE (NEGATIVE); PROPOXYPHENE SCREEN, URINE NEGATIVE (NEGATIVE); THC CANNABINOID SCREEN, URINE NEGATIVE (NEGATIVE); TRICYCLIC ANTIDEPRESSANT,URINE NEGATIVE (NEGATIVE)
== END 2023-05-19 12:09 | disposition home or self-care (01) ==
LOC: LAB 12:08
PROVIDERS: ATTEND Pharmacist
DX: I48.0 Paroxysmal atrial fibrillation (principal); F11.90 Opioid use, unspecified, uncomplicated; E61.1 Iron deficiency
CPT/HCPCS: 36415; 80053; 80306; 83540; 84466; 85025; 85610

== ENCOUNTER 2023-06-07 14:48 | Outpatient (CLI) | payer MEDICARE, BC | END 2023-06-07 14:49 | disposition home or self-care (01) | LOC: LAB 14:48 | PROVIDERS: ATTEND Internal Medicine Geriatric Medicine | DX: D50.9 Iron deficiency anemia, unspecified (principal); I48.0 Paroxysmal atrial fibrillation | CPT/HCPCS: 36415; 82728; 85610 ==

== ENCOUNTER 2023-06-22 15:10 | Outpatient (CLI) | payer MEDICARE, BC | END 2023-06-22 15:11 | disposition home or self-care (01) | LOC: LAB 15:10 | PROVIDERS: ATTEND Pharmacist | DX: I48.0 Paroxysmal atrial fibrillation (principal) | CPT/HCPCS: 36416; 85610 ==

== ENCOUNTER 2023-07-05 14:07 | Outpatient (CLI) | payer MEDICARE, BC | END 2023-07-05 14:08 | disposition home or self-care (01) | LOC: LAB 14:07 | PROVIDERS: ATTEND Pharmacist | DX: I48.0 Paroxysmal atrial fibrillation (principal) | CPT/HCPCS: 36416; 85610 ==

== ENCOUNTER 2023-09-20 11:36 | Outpatient (CLI) | payer MEDICARE, BC | END 2023-09-20 11:37 | disposition home or self-care (01) | LOC: LAB 11:36 | PROVIDERS: ATTEND Pharmacist | DX: I48.0 Paroxysmal atrial fibrillation (principal) | CPT/HCPCS: 36416; 85610 ==

== ENCOUNTER 2023-10-05 11:24 | Outpatient (CLI) | payer MEDICARE, BC ==
[2023-10-05 12:00] LABS: AMPHETAMINE SCREEN,URINE NEGATIVE (NEGATIVE); BARBITURATE SCREEN,UR NEGATIVE (NEGATIVE); BENZODIAZEPINES SCREEN, URINE NEGATIVE (NEGATIVE); BUPRENORPHINE SCREEN, URINE NEGATIVE (NEGATIVE); COCAINE SCREEN URINE NEGATIVE (NEGATIVE); METHADONE SCREEN, URINE NEGATIVE (NEGATIVE); METHAMPHETAMINES SCREEN, URINE NEGATIVE (NEGATIVE); OPIATE SCREEN, URINE NEGATIVE (NEGATIVE); OXYCODONE SCREEN, URINE POSITIVE (NEGATIVE); THC CANNABINOID SCREEN, URINE NEGATIVE (NEGATIVE); TRICYCLIC ANTIDEPRESSANT,URINE NEGATIVE (NEGATIVE)
[2023-10-05 12:10] LABS: CHOLESTEROL 262 mg/dL; HDL CHOLESTEROL 65 mg/dL; LDL CHOLESTEROL,CALCULATED 162 mg/dL; LDL/HDL RATIO 2.5 (<4.4); TRIGLYCERIDES 174 mg/dL (48-352); VLDL CHOLESTEROL 35 mg/dL
== END 2023-10-05 11:25 | disposition home or self-care (01) ==
LOC: LAB 11:24
PROVIDERS: ATTEND Internal Medicine Geriatric Medicine
DX: G89.4 Chronic pain syndrome (principal); F11.90 Opioid use, unspecified, uncomplicated; Z13.228 Encounter for screening for other metabolic disorders; I48.0 Paroxysmal atrial fibrillation
CPT/HCPCS: 36415; 80061; 80306; 81599; 83721; 85610

== ENCOUNTER 2023-10-20 13:34 | Outpatient (CLI) | payer MEDICARE, BC | END 2023-10-20 13:35 | disposition home or self-care (01) | LOC: LAB 13:34 | PROVIDERS: ATTEND Pharmacist | DX: I48.0 Paroxysmal atrial fibrillation (principal) | CPT/HCPCS: 36416; 85610 ==

== ENCOUNTER 2023-11-01 12:21 | Outpatient (CLI) | payer MEDICARE, BC | END 2023-11-01 12:22 | disposition home or self-care (01) | LOC: LAB 12:21 | PROVIDERS: ATTEND Pharmacist | DX: I48.0 Paroxysmal atrial fibrillation (principal) | CPT/HCPCS: 85610 ==

== ENCOUNTER 2023-11-29 12:36 | Outpatient (CLI) | payer MEDICARE, BC | END 2023-11-29 12:37 | disposition home or self-care (01) | LOC: LAB 12:36 | PROVIDERS: ATTEND Pharmacist | DX: I48.0 Paroxysmal atrial fibrillation (principal) | CPT/HCPCS: 36416; 85610 ==

== ENCOUNTER 2023-12-12 15:34 | Outpatient (CLI) | payer MEDICARE, BC | END 2023-12-12 15:35 | disposition home or self-care (01) | LOC: LAB 15:34 | PROVIDERS: ATTEND Pharmacist | DX: I48.0 Paroxysmal atrial fibrillation (principal) | CPT/HCPCS: 85610 ==

== ENCOUNTER 2024-01-10 12:42 | Outpatient (CLI) | payer MEDICARE, BC ==
[2024-01-10 13:09] LABS: BASOPHILS # (AUTO) 0.1 10^3/uL (0.0-0.1); BASOPHILS % (AUTO) 1.2 %; EOSINOPHILS # (AUTO) 0.2 10^3/uL (0.0-0.7); EOSINOPHILS % (AUTO) 2.3 %; HCT - HEMATOCRIT 41.3 % (37.0-47.0); HGB - HEMOGLOBIN 13.2 g/dL (12.0-16.0); LYMPHOCYTES # (AUTO) 1.8 10^3/uL (1.5-3.5); LYMPHOCYTES % (AUTO) 28.3 %; MEAN CORPUSCULAR HEMOGLOBIN 30.8 pg (27.0-31.0); MEAN CORPUSCULAR VOLUME 96.5 fL (81.0-99.0); MEAN PLATELET VOLUME 10.6 fL (7.9-10.8); MONOCYTES # (AUTO) 0.6 10^3/uL (0.0-1.0); MONOCYTES % (AUTO) 8.6 %; NEUTROPHILS # (AUTO) 3.9 10^3/uL (1.5-6.6); NEUTROPHILS % (AUTO) 59.3 %; PLT - PLATELET COUNT 301 10^3/uL (130-450); RED BLOOD COUNT 4.28 10^6/uL (4.20-5.40); RED CELL DISTRIBUTION WIDTH 13.7 % (12.0-15.0); WHITE BLOOD COUNT 6.5 x10^3/uL (4.8-10.8)
[2024-01-10 13:20] LABS: CALCIUM 10.7 mg/dL (8.5-10.3); CREATININE 0.6 mg/dL (0.6-1.3); MAGNESIUM 1.5 mg/dL (1.7-2.3); POTASSIUM 4.1 mmol/L (3.5-4.5)
== END 2024-01-10 12:43 | disposition home or self-care (01) ==
LOC: LAB 12:42
PROVIDERS: ATTEND Nurse Practitioner Family
DX: Z79.899 Other long term (current) drug therapy (principal); Z51.81 Encounter for therapeutic drug level monitoring; Z79.01 Long term (current) use of anticoagulants; I48.0 Paroxysmal atrial fibrillation
CPT/HCPCS: 36415; 80048; 83735; 85025; 85610

== ENCOUNTER 2024-01-24 11:22 | Outpatient (CLI) | payer MEDICARE, BC ==
--- NOTE | 2024-01-25 09:43 | Mammography Report ---
BILATERAL DIGITAL SCREENING MAMMOGRAM 3D/2D: 01/24/2024 CLINICAL: Routine screening. Comparison is made to exam dated: 09/21/2015 mammogram - [facility]. There are scattered areas of fibroglandular density in both breasts (category b / 25%-50% glandular t issue). There are benign vascular calcifications in both breasts. No significant masses, calcifications, or other findings are seen in either breast. There has been no significant interval change. IMPRESSION: BENIGN There is no mammographic evidence of malignancy. A 1 year screening mammogram is recommended. Based on the Tyrer Cuzick model (a risk assessment model) the patient's lifetime risk is 2.2% and her 10 year risk is 2.2%. According to the ACR, ACS, and NCCN guidelines, an annual breast MRI exam travis g with mammogram is recommended if the patient's lifetime risk is 20% or greater. This exam was interpreted at Station ID: [id number]. NOTE: For mammograms, a report in lay terms will be sent to the patient. Approximately 15% of breast malignancies will not be visualized mammographically. In the management of a palpable breast mass, a negative mammogram must not discourage biopsy of a clinically suspicious lesion. Electronically Signed By: Mackenzie pan/[email or web address]:01/24/2024 15:28:19 letter sent: No_Letter ACR BI-RADS Category 2: Benign Finding(s) 3342F PARENCHYMAL PATTERN: (A) - The breast(s) demonstrate(s) scattered fibroglandular densities. BI-RADS CATEGORY: (2) - 2 RECOMMENDATION: (ANNUAL) - Recommend routine annual screening mammography. [id number] 1 year screening LATERALITY: (B)
== END 2024-01-24 11:23 | disposition home or self-care (01) ==
LOC: DI 11:22
PROVIDERS: ATTEND Internal Medicine
DX: Z12.31 Encounter for screening mammogram for malignant neoplasm of breast (principal); R92.323 Mammographic fibroglandular density, bilateral breasts

== ENCOUNTER 2024-01-31 08:36 | Outpatient (CLI) | payer MEDICARE, BC ==
--- NOTE | 2024-01-31 16:19 | XRAY Report ---
PROCEDURE: Chest 2V INDICATIONS: PRESENCE OF CARDIAC PACEMAKER TECHNIQUE: 2 views of the chest were acquired. COMPARISON: Chest x-ray 07/22/2021 FINDINGS: Surgical changes and devices: Pacemaker in appropriate position. Lungs and pleura: No pleural effusions or pneumothorax. Lungs are clear. Mediastinum: Mediastinal contours appear normal. Heart size is normal. Bones and chest wall: No suspicious bony lesions. Overlying soft tissues appear unremarkable. IMPRESSION: No acute cardiopulmonary process. Reviewed by: Sandra Woodward MD on 01/31/2024 4:17 PM PDT Approved by: Sandra Woodward MD on 01/31/2024 4:17 PM PDT Station ID: [id number]
== END 2024-01-31 08:37 | disposition home or self-care (01) ==
LOC: DI 08:36
PROVIDERS: ATTEND Acupuncturist
DX: Z95.0 Presence of cardiac pacemaker (principal)

== ENCOUNTER 2024-03-13 10:40 | Outpatient (CLI) | payer MEDICARE, BC | END 2024-03-13 10:41 | disposition home or self-care (01) | LOC: LAB 10:40 | PROVIDERS: ATTEND Pharmacist | DX: I48.0 Paroxysmal atrial fibrillation (principal) | CPT/HCPCS: 36416; 85610 ==

== ENCOUNTER 2024-05-02 13:14 | Outpatient (CLI) | payer MEDICARE, BC | END 2024-05-02 13:15 | disposition home or self-care (01) | LOC: LAB 13:14 | PROVIDERS: ATTEND Pharmacist | DX: I48.0 Paroxysmal atrial fibrillation (principal); Z51.81 Encounter for therapeutic drug level monitoring; Z79.899 Other long term (current) drug therapy; Z79.01 Long term (current) use of anticoagulants | CPT/HCPCS: 36415; 83735; 85610 ==

== ENCOUNTER 2024-05-09 15:51 | Outpatient (CLI) | payer MEDICARE, BC ==
[2024-05-09 16:04] LABS: BASOPHILS # (AUTO) 0.1 10^3/uL (0.0-0.1); BASOPHILS % (AUTO) 0.9 %; EOSINOPHILS # (AUTO) 0.2 10^3/uL (0.0-0.7); EOSINOPHILS % (AUTO) 2.2 %; HCT - HEMATOCRIT 39.2 % (37.0-47.0); HGB - HEMOGLOBIN 12.5 g/dL (12.0-16.0); LYMPHOCYTES # (AUTO) 2.5 10^3/uL (1.5-3.5); LYMPHOCYTES % (AUTO) 29.9 %; MEAN CORPUSCULAR HEMOGLOBIN 30.8 pg (27.0-31.0); MEAN CORPUSCULAR HGB CONC 31.9 g/dL (32.0-36.0); MEAN CORPUSCULAR VOLUME 96.6 fL (81.0-99.0); MEAN PLATELET VOLUME 10.1 fL (7.9-10.8); MONOCYTES # (AUTO) 0.7 10^3/uL (0.0-1.0); MONOCYTES % (AUTO) 8.4 %; NEUTROPHILS # (AUTO) 4.8 10^3/uL (1.5-6.6); NEUTROPHILS % (AUTO) 58.4 %; PLT - PLATELET COUNT 304 10^3/uL (130-450); RED BLOOD COUNT 4.06 10^6/uL (4.20-5.40); RED CELL DISTRIBUTION WIDTH 13.2 % (12.0-15.0); WHITE BLOOD COUNT 8.2 x10^3/uL (4.8-10.8)
[2024-05-09 16:19] LABS: MAGNESIUM 1.7 mg/dL (1.7-2.3)
[2024-05-09 16:25] LABS: CREATININE 0.5 mg/dL (0.6-1.3); POTASSIUM 4.3 mmol/L (3.5-4.5)
[2024-05-09 16:44] LABS: THYROID STIMULATING HORMONE 1.08 uIU/mL (0.34-5.60)
[2024-05-09 16:50] LABS: FERRITIN 357.4 ng/mL (11.0-306.8)
== END 2024-05-09 15:52 | disposition home or self-care (01) ==
LOC: LAB 15:51
PROVIDERS: ATTEND Internal Medicine
DX: Z00.00 Encounter for general adult medical examination without abnormal findings (principal); D64.9 Anemia, unspecified; F41.9 Anxiety disorder, unspecified; I48.91 Unspecified atrial fibrillation; J44.9 Chronic obstructive pulmonary disease, unspecified; Z79.899 Other long term (current) drug therapy; M48.00 Spinal stenosis, site unspecified; I71.43 Infrarenal abdominal aortic aneurysm, without rupture
CPT/HCPCS: 36415; 80048; 82465; 82728; 83540; 83615; 83718; 83735; 83880; 84443; 84466; 85025; 85651

== ENCOUNTER 2024-05-29 12:12 | Outpatient (CLI) | payer MEDICARE, BC | END 2024-05-29 12:13 | disposition home or self-care (01) | LOC: LAB 12:12 | PROVIDERS: ATTEND Pharmacist | DX: I48.0 Paroxysmal atrial fibrillation (principal); Z51.81 Encounter for therapeutic drug level monitoring; Z79.899 Other long term (current) drug therapy; Z79.01 Long term (current) use of anticoagulants | CPT/HCPCS: 36415; 83735; 85610 ==